=== PATIENT | male | born 1945 | race Caucasian/White ===

== ENCOUNTER 2017-01-09 01:24 | Emergency (ER) | payer OTHER, BC ==
[2017-01-09 01:59] VITALS: BP 109/59; PULSE 97; TEMP 98.1; BMI 25.1
--- NOTE | 2017-01-09 02:36 | PDOC ---
History of Present Illness - General History Source: Patient Exam Limitations: No Limitations - History of Present Illness Initial Comments: 01/09/17 03:16 The patient is a 71 year old male with significant past medical history of hyperlipidemia who presents to the ED for s/p fall prior to arrival. Patient reports he was leaving a green party yesterday evening when he trip and fell on the sidewalk and was unable to get up. He reports falling on both of his knee and now has complaints of bilateral knee pain. No head trauma or LOC. States he contacted 911 for help. States he wanted to go home to his apartment, but was brought here instead. Patient admits to having 5 drinks of vodka with soda. He states he lost his two months ago and admits that he has been stressed out and thus this contributes to his drinking. The patient denies fever, chills, cough, SOB, chest pain, and palpitations. The patient denies abdominal pain, nausea, vomiting, and diarrhea. <Margaret Kasper - Last Filed: 01/09/17 03:25> - General History Source: Patient <Glen Friedman - Last Filed: 01/09/17 04:52> - General Chief Complaint: Alcohol intoxication Stated Complaint: INTOX Time Seen by Provider: 01/09/17 02:35 Past History <Margaret Kasper - Last Filed: 01/09/17 03:25> - Psycho/Social/Smoking Cessation Hx Suicidal Ideation: No Smoking History: Former smoker Have you smoked in the past 12 months: Yes Information on smoking cessation initiated: No Hx Alcohol Use: No Drug/Substance Use Hx: No <Glen Friedman - Last Filed: 01/09/17 04:52> - Past Medical History Allergies/Adverse Reactions: Allergies Allergy/AdvReac Type Severity Reaction Status Date / Time No Known Allergies Allergy Verified 01/09/17 01:57 Home Medications: Ambulatory Orders NK [No Known Home Medication] 01/09/17 Review of Systems - Review of Systems Able to Perform ROS?: Yes Comments:: 01/09/17 03:16 CONSTITUTIONAL: Absent: fever, no chills, no fatigue EYES: Absent: visual changes ENT: Absent: ear pain, no sore throat CARDIOVASCULAR: Absent: chest pain, no palpitations RESPIRATORY: Absent: cough, no SOB GI: Absent: abdominal pain, no nausea, no vomiting, no constipation, no diarrhea GENITOURINARY: Absent: dysuria, no frequency, no hematuria MUSCULOSKELETAL: +bilateral knee pain Absent: back pain, no myalgia SKIN: Absent: rash NEURO: Absent: headache <Margaret Kasper - Last Filed: 01/09/17 03:25> *Physical Exam - Vital Signs Last Vital Signs Temp Pulse Resp BP Pulse Ox 98.1 F 97 H 14 109/59 88 L 01/09/17 01:57 01/09/17 01:57 01/09/17 01:57 01/09/17 01:57 01/09/17 01:57 - Physical Exam Comments: 01/09/17 03:18 GENERAL: Well-appearing, well-nourished. No apparent distress. +AOB HEENT: Normocephalic, atraumatic. No racoon or kaufman signs. PERRL, EOM intact. No hemotympanum. CARDIOVASCULAR: Normal S1, S2. Regular rate and rhythm. PULMONARY: Clear to auscultation bilaterally. ABDOMEN: Protuberant, soft, non-distended, non-tender. EXTREMITIES: Normal ROM in all four extremities. No gross deformities. SKIN: Warm, dry. No rash. 2 small abrasions on bilateral knees. Small abrasion on under mandible NEUROLOGICAL: No focal neurological deficits. <Margaret Kasper - Last Filed: 01/09/17 03:25> - Vital Signs Last Vital Signs Temp Pulse Resp BP Pulse Ox 98.1 F 97 H 14 109/59 88 L 01/09/17 01:57 01/09/17 01:57 01/09/17 01:57 01/09/17 01:57 01/09/17 01:57 <Glen Friedman - Last Filed: 01/09/17 04:52> Medical Decision Making - Medical Decision Making 01/09/17 04:51 Dr. Friedman: The scribe's documentation has been prepared under my direction and personally reviewed by me in its entirery. I confirm that the note above accurately reflects all work, treatment, procedures, and medical decision making performed by me. Pt alert awake and oriented, Pt has been observed for several hours. no gross bony deformities of knees. Pt will be discharge <Glen Friedman - Last Filed: 01/09/17 04:52> *DC/Admit/Observation/Transfer - Attestations Scribe Attestion: 01/09/17 03:18 Documentation prepared by Margaret Kasper, acting as medical technologist hematology for Glen Friedman MD/DO. <Margaret Kasper - Last Filed: 01/09/17 03:25> - Discharge Dispostion Admit: No <Glen Friedman - Last Filed: 01/09/17 04:52> Diagnosis at time of Disposition: Contusion Qualifiers: Encounter type: initial encounter Contusion area: knee Laterality: unspecified laterality Qualified Code(s): S80.00XA - Contusion of unspecified knee, initial encounter - Discharge Dispostion Disposition: HOME Condition at time of disposition: Stable - Patient Instructions Printed Discharge Instructions: DI for Contusion
== END 2017-01-09 05:01 | disposition home or self-care (01) ==
LOC: JER 01:24
DX: S80.02XA Contusion of left knee, initial encounter (principal); S80.01XA Contusion of right knee, initial encounter; W18.39XA Other fall on same level, initial encounter; Y93.89 Activity, other specified; Y92.480 Sidewalk as the place of occurrence of the external cause; E78.5 Hyperlipidemia, unspecified
CPT/HCPCS: 99281-25

== ENCOUNTER 2019-04-22 15:33 | Emergency (ER) | payer OTHER, BC ==
--- NOTE | 2019-04-22 15:44 | PDOC ---
Rapid Medical Evaluation Chief Complaint: Lightheaded Time Seen by Provider: 04/22/19 15:39 Medical Evaluation: Allergies Allergy/AdvReac Type Severity Reaction Status Date / Time No Known Allergies Allergy Verified 01/09/17 01:57 04/22/19 15:39 74 year old male felt faint, dizziness and disorientation at 1.30 pm, now less disoriented as per nephew. BIB nephew for evaluation PE: patient alert ox3. patient with garbled speech no weakness A: AMS P: Stroke/ TIA symptoms? stroke code called labs ordered, history of hypercholestrolemia Discharge Disposition - Diagnosis Altered mental status Qualifiers: Altered mental status type: transient alteration of awareness Qualified Code(s) : R40.4 - Transient alteration of awareness - Referrals - Patient Instructions - Post Discharge Activity
[2019-04-22] MEDS ORDERED: SODIUM CHLORIDE 1,000 ML IV SCH (15:45)
[2019-04-22 15:49] VITALS: TEMP 98.2; BMI 23.3
[2019-04-22 16:37] LABS: BASO % 1.6 % (0-2.0); EOS % 2.1 % (0-4.5); HEMATOCRIT 43.4 % (35.4-49); HEMOGLOBIN 14.4 GM/dL (11.7-16.9); LYMPH % 20.6 % (8-40); MCH 32.7 pg (25.7-33.7); MCHC 33.2 g/dl (32.0-35.9); MEAN CELL VOLUME 98.5 fl (80-96); MEAN PLT VOLUME 9.4 fl (7.5-11.1); MONO % 11.9 % (3.8-10.2); NEUT % 63.8 % (42.8-82.8); PLATELET COUNT 143 K/MM3 (134-434); RBC 4.41 M/mm3 (4.00-5.60); RDW 12.8 % (11.9-15.9); WHITE BLOOD COUNT 8.6 K/mm3 (4.0-10.0)
--- NOTE | 2019-04-22 16:39 | PDOC ---
History of Present Illness - History of Present Illness Initial Comments: 04/22/19 16:34 74m with pmh of right temporoparietal subdural bleed in May 2018 (no surgery ) presents to the Ed after episode at 1330 of non-sensical speech, now resolved. Nephew reports that as he was talking to his uncle over the phone he realized that the sentence his uncle were saying had existing world and the sentences were well-constructed but that they didn't make sense. No recent trauma. Denies chest pain, sob, weakness. Feels at baseline. <Isidoro Lion - Last Filed: 04/22/19 18:17> <Nellie Brandon - Last Filed: 04/23/19 17:50> - General Chief Complaint: CVA/TIA Stated Complaint: Weakness Time Seen by Provider: 04/22/19 15:39 Past History - Past Medical History COPD: No Hypercholesterolemia: Yes - Immunization History Immunization Up to Date: Yes - Suicide/Smoking/Psychosocial Hx Smoking History: Never smoked Have you smoked in the past 12 months: No Information on smoking cessation initiated: No Hx Alcohol Use: No Drug/Substance Use Hx: No <Isidoro Lion - Last Filed: 04/22/19 18:17> <Nellie Brandon - Last Filed: 04/23/19 17:50> - Past Medical History Allergies/Adverse Reactions: Allergies Allergy/AdvReac Type Severity Reaction Status Date / Time No Known Allergies Allergy Verified 04/22/19 15:49 Home Medications: Ambulatory Orders NK [No Known Home Medication] 01/09/17 Review of Systems - Review of Systems Able to Perform ROS?: Yes Is the patient limited Upper Sorbian proficient: No Constitutional: No: Symptoms Reported HEENTM: No: Symptoms Reported Respiratory: No: Symptoms reported Cardiac (ROS): No: Symptoms Reported ABD/GI: No: Symptoms Reported : No: Symptoms Reported Musculoskeletal: No: Symptoms Reported Integumentary: No: Symptoms Reported Neurological: No: Symptoms reported All Other Systems: Reviewed and Negative <Isidoro iLon - Last Filed: 04/22/19 18:17> *Physical Exam - Vital Signs Last Vital Signs Temp Pulse Resp BP Pulse Ox 98.2 F 79 16 166/102 H 95 04/22/19 15:41 04/22/19 15:41 04/22/19 15:41 04/22/19 15:41 04/22/19 15:41 - Physical Exam General Appearance: Yes: Nourished, Appropriately Dressed. No: Apparent Distress HEENT: positive: EOMI, NIESHA, Normal ENT Inspection Respiratory/Chest: positive: Lungs Clear, Normal Breath Sounds. negative: Chest Tender, Respiratory Distress Cardiovascular: positive: Regular Rhythm, Regular Rate, S1, S2 Gastrointestinal/Abdominal: positive: Normal Bowel Sounds, Flat, Soft. negative : Tender Musculoskeletal: positive: Normal Inspection. negative: CVA Tenderness Extremity: positive: Normal Capillary Refill, Normal Inspection, Normal Range of Motion Neurologic: positive: clinical quality assurance associate II-XII NML intact, Fully Oriented, Alert, Normal Mood/ Affect, Normal Response, Motor Strength 5/5 <Isidoro Lion - Last Filed: 04/22/19 18:17> - Vital Signs Last Vital Signs Temp Pulse Resp BP Pulse Ox 98.2 F 76 20 168/99 95 04/22/19 18:39 04/22/19 18:39 04/22/19 18:39 04/22/19 18:39 04/22/19 15:41 <Nellie Brandon - Last Filed: 04/23/19 17:50> NIH Stroke Scale - Last Known Well Date/Time & Onset Date Last Known Well: 04/22/19 Time Last Known Well: 13:30 - Initial Evaluation Level of consciousness: Alert Ask patient the month and their age: Answers both correctly Ask patient to open & close eyes; make fist and let go: Obeys both correctly Best gaze (horizontal eye movement): Normal Visual field testing: No visual field loss Facial paresis (Show teeth/raise eyebrows/close eyes tight): Minor paralysis ( flattened nasolabial fold, asymmetry on smiling) Motor Function: Left Arm: Normal Motor Function: Right Arm: Normal (extends arm 90 (or 45) degrees for 10 seconds without drift Motor Function: Left Leg: Normal (extends leg 30 degrees for 5 seconds without drift) Motor Function: Right Leg: Normal (extends leg 30 degrees for 5 seconds without drift) Limb Ataxia: No ataxia Sensory(Use pinprick test arms,legs,trunk,face/side to side): Normal Best language (Describe picture, name items, read sentences): No Aphasia Dysarthria (read several words): Normal articulation Extinction and Inattention: No abnormality - Total Score NIH Stroke Scale Score: 1 <Isidoro Lion - Last Filed: 04/22/19 18:17> Critical Care Time/MDM Note - Medical Decision Making Note: 04/22/19 16:36 74 with pmh of right sided subdural bleed in May 2018 presents with Wernicke -type aphasia, now resolved. CT read: Right temporal and right frontal juxtacortical mildly hyperdense lesions are seen probably on the basis of neoplastic disease. These lesions may also be partially hemorrhagic. Each lesion demonstrates mild associated edema. Correlation with contrast enhanced MRI or CT is suggested. 04/22/19 16:39 Placing call to Neurologist manager front office. Spoke to Dr. Rutherford covering for Dr. Dwyer, patient as lung mass that was never biopsied 04/22/19 18:00 Dr. Brandon spoke to Dr. Rachel who recommended the patient be transferred back to [facility] as we don't have a previous image to compare <Isidoro Lion - Last Filed: 04/22/19 18:17> *DC/Admit/Observation/Transfer - Transfer to Acute Care Facility Receiving Facility: [facility]. Accepting Physician:: Julianna <Isidoro Lion - Last Filed: 04/22/19 18:17> <Nellie Brandon - Last Filed: 04/23/19 17:50> Diagnosis at time of Disposition: Abnormal CT of brain Altered mental status Qualifiers: Altered mental status type: transient alteration of awareness Qualified Code(s) : R40.4 - Transient alteration of awareness - Discharge Dispostion Disposition: TRANSFER ACUTE CARE/OTHER HOSP Condition at time of disposition: Guarded
[2019-04-22 16:57] LABS: INR 0.96 (0.83-1.09); PROTHROMBIN TIME (PATIENT) 11.3 SEC (9.7-13.0)
--- NOTE | 2019-04-22 17:12 | PDOC ---
Documentation entered by Mason Sun SCRIBE, acting as scribe for Nellie Brandon MD. Nellie Brandon MD: This documentation has been prepared by the Corinne coronado Xhesika, SCRIBE, under my direction and personally reviewed by me in its entirety. I confirm that the documentation accurately reflects all work, treatment, procedures, and medical decision making performed by me. Attending Attestation - Resident Resident Name: LionIsidoro - ED Attending Attestation I have performed the following: I have examined & evaluated the patient, The case was reviewed & discussed with the resident, I agree w/resident's findings & plan, Exceptions are as noted - HPI HPI: 04/22/19 16:30 74 year old male with a significant PMH of R temporal subdural bleed and hyperlipidemia who presents to the emergency department for aphasia since 1: 30pm. As per nephew, he was on the phone with the patient and the patient was garbling his speech and was disoriented. Patient denies any complaints currently. The patient denies chest pain, shortness of breath, headache and dizziness. Denies fever, chills, cough, nausea, vomiting, diarrhea and constipation. Denies dysuria, frequency, urgency and hematuria. Allergies: NKDA PCP: Immanuel Brown 04/22/19 17:05 - Physicial Exam PE: 04/22/19 17:20 awake alert lungs clear face with left sided asymmetry weakness on smiling. strength symmetric. speech mild slurring of some words ( baseline per nephew). - Medical Decision Making 04/22/19 17:05 74 yo male ho recently treated lung mass / CA htn hld here with episode of transient aphasia/ confusion lasted from 1:30 pm until EMS arrived 20 minutes later. no h/o prior CVA, does have h/o prior subdural after a fall , followed with a nuerologist DR Leiva in [place] [facility] after his discharge. pt denies f/c no cp no sob. no known h/o prior CVA or brain mass. no other mod factors. per nephew at pt bedside hes back to his baseline. on exam pt with noted left facial droop, speech mild dysarthria, strength symmetric. plan ct head labs ekg . 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 awaiting call back. 04/22/19 17:31 dw remigio Ureña [employer] and silver[employer] salesperson. recommend transfer to [facility] for continuity, further workup. [facility] paged. 04/22/19 17:36 [facility] to be transported to [facility], accepted by DR Kulkarni. NIH Stroke Scale - Initial Evaluation Level of consciousness: Alert Ask patient the month and their age: Answers both correctly Ask patient to open & close eyes; make fist and let go: Obeys both correctly Best gaze (horizontal eye movement): Normal Visual field testing: Partial hemianopia Facial paresis (Show teeth/raise eyebrows/close eyes tight): Minor paralysis ( flattened nasolabial fold, asymmetry on smiling) Motor Function: Left Arm: Normal Motor Function: Right Arm: Normal (extends arm 90 (or 45) degrees for 10 seconds without drift Motor Function: Left Leg: Normal (extends leg 30 degrees for 5 seconds without drift) Motor Function: Right Leg: Normal (extends leg 30 degrees for 5 seconds without drift) Limb Ataxia: No ataxia Sensory(Use pinprick test arms,legs,trunk,face/side to side): Normal Best language (Describe picture, name items, read sentences): No Aphasia Dysarthria (read several words): Mild to moderate slurring of words Extinction and Inattention: No abnormality - Total Score NIH Stroke Scale Score: 3
[2019-04-22 17:24] LABS: ALBUMIN 3.7 g/dl (3.4-5.0); ALK PHOS 76 U/L (45-117); ANION GAP 7 MMOL/L (8-16); BILIRUBIN,TOTAL 0.8 mg/dL (0.2-1); BLOOD UREA NITROGEN 12.3 mg/dL (7-18); CALCIUM 8.8 mg/dL (8.5-10.1); CHLORIDE 103 mmol/L (98-107); CHOLESTEROL 176 mg/dL (50-200); CO2 28 mmol/L (21-32); CREATININE 0.8 mg/dL (0.55-1.3); GLUCOSE,RANDOM 82 mg/dL (74-106); HDL CHOLESTEROL 59 mg/dL (40-60); POTASSIUM 4.8 mmol/L (3.5-5.1); SGOT/AST 28 U/L (15-37); SGPT/ALT 20 U/L (13-61); SODIUM 138 mmol/L (136-145); TOT PROT 7.7 g/dl (6.4-8.2)
[2019-04-22] MEDS ORDERED: DEXAMETHASONE SOD PHOSPHATE 10 MG/1 ML VIAL IVPUSH ONE (17:38)
[2019-04-22] MEDS ORDERED: DEXAMETHASONE SOD PHOSPHATE 10 MG/1 ML VIAL ONE (17:54)
[2019-04-22 18:42] VITALS: BP 168/99; PULSE 76
--- NOTE | 2019-04-23 11:46 | EKG ---
Test Reason : Blood Pressure : / mmHG Vent. Rate : 077 BPM Atrial Rate : 077 BPM P-R Int : 168 ms QRS Dur : 082 ms QT Int : 386 ms P-R-T Axes : 062 075 072 degrees QTc Int : 436 ms NORMAL SINUS RHYTHM Confirmed by KATHY GONZALEZ MD ([id number]) on 04/23/2019 11:46:38 AM Referred By: Confirmed By:KATHY GONZALEZ MD
== END 2019-04-22 18:42 | disposition short-term general hospital (02) ==
LOC: JER 15:33
PROC: 3E0333Z Introduction of Anti-inflammatory into Peripheral Vein, Percutaneous Approach (ICD-10-PCS; principal; 2019-04-22)
PROC: 3E0337Z Introduction of Electrolytic and Water Balance Substance into Peripheral Vein, Percutaneous Approach (ICD-10-PCS; 2019-04-22)
DX: R40.4 Transient alteration of awareness (principal); R90.89 Other abnormal findings on diagnostic imaging of central nervous system; I69.820 Aphasia following other cerebrovascular disease; E78.00 Pure hypercholesterolemia, unspecified
CPT/HCPCS: 36415; 70450-TC; 80053; 82465; 82550; 82553; 83718; 83721; 84478; 84484; 85025; 85610; 93005; 93010; 99285-25; J1100; J7030

== ENCOUNTER 2019-08-17 13:47 | Inpatient (IN) | payer OTHER, BC ==
[2019-08-17 13:56] VITALS: BMI 22.2
[2019-08-17] MEDS ORDERED: ALBUTEROL SO4 2.5/IPRATROPIUM 0.5 INH SOL 3 ML VIAL.NEB. NEB ONE ×4 (13:57→14:57)
--- NOTE | 2019-08-17 13:57 | PDOC ---
Rapid Medical Evaluation Medical Evaluation: Allergies Allergy/AdvReac Type Severity Reaction Status Date / Time No Known Allergies Allergy Verified 04/22/19 15:49 I have performed a brief in-person evaluation of this patient. The patient presents with a chief complaint of: PMH of R temporal subdural bleed , ?COPD and hyperlipidemia presents with chest pain and productive cough for the past few days; denies fever Pertinent physical exam findings: In NAD, difficult to auscultate lungs due to poor inspiratory effort I have ordered the following: Labs, EKG, CXR, duoneb The patient will proceed to the ED for further evaluation. 08/17/19 13:52
[2019-08-17] MEDS ORDERED: methylPREDNISolone NA SUCC 125 MG/2 ML VIAL IVPB ONE (14:56)
[2019-08-17] MEDS ORDERED: methylPREDNISolone NA SUCC 125 MG/2 ML VIAL ONE (14:59)
[2019-08-17 15:06] LABS: BASO % 0.5 % (0-2.0); HEMATOCRIT 42.9 % (35.4-49); HEMOGLOBIN 14.3 GM/dL (11.7-16.9); LYMPH % 8.2 % (8-40); MCH 32.1 pg (25.7-33.7); MCHC 33.3 g/dl (32.0-35.9); MEAN CELL VOLUME 96.4 fl (80-96); MEAN PLT VOLUME 8.4 fl (7.5-11.1); NEUT % 85.3 % (42.8-82.8); PLATELET COUNT 115 K/MM3 (134-434); RBC 4.45 M/mm3 (4.00-5.60); RDW 14.5 % (11.9-15.9); WHITE BLOOD COUNT 10.1 K/mm3 (4.0-10.0)
--- NOTE | 2019-08-17 15:09 | PDOC ---
History of Present Illness - General Chief Complaint: Shortness of Breath Stated Complaint: CHEST PAIN Time Seen by Provider: 08/17/19 14:32 - History of Present Illness Initial Comments: 08/18/19 10:12 74M PMH COPD, subdural BIBEMS from home c/o SOB and productive cough (yellow sputum) x3 days. Denies f/c, n/v, cp. Denies GI and urinary sx. Recently prescribed ventolin inhaler which helps w/ SOB when used. Not on home O2. Poor historian. PCP Dr. Yuliya VARELA Former smoker Past History - Past Medical History Allergies/Adverse Reactions: Allergies Allergy/AdvReac Type Severity Reaction Status Date / Time No Known Allergies Allergy Verified 08/17/19 13:56 Home Medications: Ambulatory Orders Atorvastatin Ca [Lipitor] 20 mg PO HS 08/17/19 Carvedilol [Coreg -] 3.125 mg PO BID 08/17/19 Omeprazole 40 mg PO 08/17/19 levETIRAcetam [Keppra -] 500 mg PO BID 08/17/19 COPD: Yes (unknown due to pt's condition) Hypercholesterolemia: Yes - Immunization History Immunization Up to Date: Yes - Psycho Social/Smoking Cessation Hx Smoking History: Former smoker Have you smoked in the past 12 months: No Information on smoking cessation initiated: No Hx Alcohol Use: (unknown) Drug/Substance Use Hx: (unknown `) Review of Systems - Review of Systems Comments:: 08/18/19 10:12 CONSTITUTIONAL: Denies F / C HEENT: Denies headache, lightheadedness, dizziness, changes in vision / hearing , diplopia, blurry vision, sore throat, rhinorrhea RESP: Endorses SOB, productive cough CARD: Denies chest pain, palpitations GI: Denies N / V / D, abdominal pain, bloody stool, inability to tolerate PO : Denies dysuria, hematuria, frequency SKIN: Denies rashes NEURO: Denies numbness, tingling, weakness MSK: Denies back pain *Physical Exam - Vital Signs Last Vital Signs Temp Pulse Resp BP Pulse Ox 97.4 F L 100 H 18 111/78 95 08/17/19 13:51 08/17/19 13:51 08/17/19 13:51 08/17/19 13:51 08/17/19 13:51 - Physical Exam 08/18/19 10:13 GEN: NAD, nontoxic. AAOx3 HEENT: NC/AT, EOMI, PERRLA. No facial asymmetry. Moist mucous membranes. Normal voice. Supple neck w/ FROM. CV: S1/S2, quiet LUNG: Audible breathing, restricted air movement, occasional expiratory wheezes GI: soft, ndnt, +BS, no guarding, no rebound. No masses. EXTREMITIES: 2+ distal pulses. No LE edema. No obvious deformities of all extremities. SKIN: warm, dry, normal turgor. Plethoric neck and upper chest. PSYCH: odd affect, minimally cooperative, not hostile NEURO: Moving all extremities well ED Treatment Course - LABORATORY CBC & Chemistry Diagram: 08/18/19 07:40 08/18/19 07:40 Medical Decision Making - Medical Decision Making 08/17/19 15:09 74M c/o SOB and productive cough (thick yellow sputum) x3 days w/o f/c. DDx - likely COPD exacerbation; PNA, bronchitis - CBC, CMP, Cardiac - CXR - EKG - Nebs, steroids 08/17/19 15:24 Daniel Hodges - pt's cousin called in stating he is pt's only living relative Spoke to pt regarding Daniel Hodges - pt states he does not get along with Daniel Hodges and that Yusef Olson, is in fact, his proxy. - Admit // ADMITTED Discharge - Discharge Information Problems reviewed: Yes Clinical Impression/Diagnosis: COPD exacerbation - Follow up/Referral - Patient Discharge Instructions - Post Discharge Activity
[2019-08-17 15:11] LABS: VENOUS PC02 40.6 mmHg (38-52); VENOUS PH 7.44 (7.31-7.41); VENOUS PO2 57.9 mmHg (28-48)
[2019-08-17 15:40] LABS: ANISOCYTOSIS 0; MACROCYTOSIS 0; PLATELET ESTIMATE DECREASED
[2019-08-17 15:42] LABS: ALBUMIN 2.7 g/dl (3.4-5.0); BILIRUBIN,TOTAL 0.8 mg/dL (0.2-1); CALCIUM 8.9 mg/dL (8.5-10.1); CREATININE 0.8 mg/dL (0.55-1.3); N-TERMINAL BNP 1028.2 pg/ml (5-450); TOT PROT 5.9 g/dl (6.4-8.2)
--- NOTE | 2019-08-17 15:49 | PDOC ---
Attending Attestation - Resident Resident Name: Frederick Quintero - ED Attending Attestation I have performed the following: I have examined & evaluated the patient, The case was reviewed & discussed with the resident, I agree w/resident's findings & plan - HPI HPI: 08/17/19 15:46 74-year-old male with history of COPD presents brought in by EMS with 2 weeks of progressive respiratory symptoms of cough, chills, chest congestion. No nasal symptoms, no GI complaints, no persistent chest pain. Taking inhaler without relief, presents for evaluation. - Physicial Exam PE: 08/17/19 15:47 Afebrile, slight tachycardia, O2 sat 91% on room air tachypneic, speaking 4-5 word sentences no jvd, oropharynx clear s1s2 reg slight tachy coarse breath sounds b/l, + exp wheeze abd benign no edema - Critical Care Time Total Critical Care Time: 30 Critical Care Statement: The care of this patient involved high complexity decision making to prevent further life threatening deterioration of the patient 's condition and/or to evaluate & treat vital organ system(s) failure or risk of failure. - Medical Decision Making 08/17/19 15:49 74-year-old male with 2 weeks of progressive difficulty breathing, presents here with COPD exacerbation and acute hypoxic respiratory distress, treated immediately upon arrival with nebulizers, IV steroids. EKG showed sinus tachycardia without acute ischemia, presentation not consistent with volume overload or CHF Labs, chest x-ray Will require admission for hypoxic COPD exacerbation 08/17/19 15:51 wbc 10 with 13 bands. chem wnl including trop. pCO2 normal on vbg. Heart Score/ECG Review #1 ECG reviewed & interpreted by me at: 14:12 General ECG Interpretation: Sinus Rhythm, Normal Rate (95), Normal Intervals ( qtc 457), No acute ischemic changes
[2019-08-17] MEDS ORDERED: AZITHROMYCIN IVPB 500 MG in DEXTROSE 5%-WATER - 250 ML IVPB ONE (16:18)
[2019-08-17] MEDS ORDERED: CEFTRIAXONE 1 GM in DEXTROSE 5%-WATER - 100 ML IVPB ONE (16:30)
--- NOTE | 2019-08-17 16:54 | PN ---
Teaching Attending Note Name of Resident: Mateus Kitchen ATTENDING PHYSICIAN STATEMENT I saw and evaluated the patient. I reviewed the resident's note and discussed the case with the resident. I agree with the resident's findings and plan as documented. SUBJECTIVE: Patient is a 74yom with PMHx of Right temporal SDH, dyslipidemia, lung ca( s/p RT [id number]) presents to ED with complaint of SOB with productive cough of white sputum with worsening symptoms. Patient has been on dexamethasone for a long time. Feels better at this time OBJECTIVE: Vital Signs Temperature 97.4 F L 08/17/19 13:51 Pulse Rate 93 H 08/17/19 13:55 Respiratory Rate 18 08/17/19 13:51 Blood Pressure 111/78 08/17/19 13:51 O2 Sat by Pulse Oximetry (%) 91 L 08/17/19 13:55 GENERAL: The patient is awake, alert, pursed lips with red neck . HEAD: Normal with no signs of trauma. EYES: PERRL, extraocular movements intact, sclera anicteric, conjunctiva clear. ENT: Ears normal, oropharynx clear without exudates, moist mucous membranes. NECK: Trachea midline, full range of motion, supple. LUNGS: Breath sounds equal, clear to auscultation bilaterally, no wheezes, no crackles, no accessory muscle use. HEART: Regular rate and rhythm, S1, S2 positive, TAN 2/6 no rub or gallop. ABDOMEN: Soft, nontender, nondistended, normoactive bowel sounds, no guarding, no rebound, no hepatosplenomegaly, no masses. EXTREMITIES: 2+ pulses, warm, well-perfused, no edema. NEUROLOGICAL: Cranial nerves II through XII grossly intact. Normal speech, gait not observed. PSYCH: Normal mood, normal affect. SKIN: Warm, dry, normal turgor, no rashes or lesions noted CBCD WBC 10.1 K/mm3 (4.0-10.0) H 08/17/19 14:52 RBC 4.45 M/mm3 (4.00-5.60) 08/17/19 14:52 Hgb 14.3 GM/dL (11.7-16.9) 08/17/19 14:52 Hct 42.9 % (35.4-49) 08/17/19 14:52 MCV 96.4 fl (80-96) H 08/17/19 14:52 MCHC 33.3 g/dl (32.0-35.9) 08/17/19 14:52 RDW 14.5 % (11.9-15.9) D 08/17/19 14:52 Plt Count 115 K/MM3 (134-434) L 08/17/19 14:52 MPV 8.4 fl (7.5-11.1) D 08/17/19 14:52 CMP Sodium 142 mmol/L (136-145) 08/17/19 14:52 Potassium 5.0 mmol/L (3.5-5.1) 08/17/19 14:52 Chloride 106 mmol/L (98-107) 08/17/19 14:52 Carbon Dioxide 28 mmol/L (21-32) 08/17/19 14:52 Anion Gap 8 MMOL/L (8-16) 08/17/19 14:52 BUN 30.0 mg/dL (7-18) H 08/17/19 14:52 Creatinine 0.8 mg/dL (0.55-1.3) 08/17/19 14:52 Random Glucose 116 mg/dL (74-106) H 08/17/19 14:52 Calcium 8.9 mg/dL (8.5-10.1) 08/17/19 14:52 Total Bilirubin 0.8 mg/dL (0.2-1) 08/17/19 14:52 AST 32 U/L (15-37) 08/17/19 14:52 ALT 45 U/L (13-61) 08/17/19 14:52 Alkaline Phosphatase 101 U/L (45-117) 08/17/19 14:52 Total Protein 5.9 g/dl (6.4-8.2) L 08/17/19 14:52 Albumin 2.7 g/dl (3.4-5.0) L 08/17/19 14:52 CARDIAC ENZYMES Troponin I 0.03 ng/ml (0.00-0.05) 08/17/19 14:52 Current Medications Generic Name Dose Route Start Last Admin Trade Name Freq PRN Reason Stop Dose Admin Azithromycin 500 mg/ Dextrose 250 mls @ 250 mls/hr 08/17/19 16:18 IVPB 08/17/19 17:17 ONCE ONE Ceftriaxone Sodium 1 gm/ 100 mls @ 200 mls/hr 08/17/19 16:30 Dextrose IVPB 08/17/19 16:59 ONCE ONE Home Medications Medication Instructions Recorded NK [No Known Home Medication] 01/09/17 Unobtainable 06/11/18 BNP: 1028 ASSESSMENT AND PLAN: Patient is a 74yom with Pmhx of COPD presented difficulty breathing with progression x 2 weeks presented with acute COPD exacerbation and acute hypoxic respiratory distress. # Acute Copd exacerbation continue solu medrol since unable to get the correct dosing of dexamethasone #acute hypoxic respiratory distress. neb treatments continue rocephin/zithmax, check the qtc in am pulm consult check for TSH hx of Rtx DVT px: lovenox 40mg
[2019-08-17] MEDS ORDERED: CEFTRIAXONE 1 GM/50 ML BAG ONE (17:03)
[2019-08-17] MEDS ORDERED: AZITHROMYCIN IVPB 500 MG/250 ML BAG IVPB ONE (17:03)
--- NOTE | 2019-08-17 17:51 | HP ---
CHIEF COMPLAINT: SOB and cough PCP: Axel Dwyer HISTORY OF PRESENT ILLNESS: 74M w/ pmh of Right temporal SDH, dyslipidemia, lung ca(s/p RT [id number]) presents to [facility] with complaint of SOB with productive cough of white sputum. Has had cough for multiple weeks, worsening in the past 3d. Denies rhinorrhea, recent sick contacts, fever, chills, lethargy. States that his last hospitalization for breathing issues was ~2018, never intubated. Unsure if he was recently taking prednisone or dexamethasone. No use of home oxygen. Lives alone, ambulates with cane. Also, endorses transient weakness in Left Leg lasting 45mins starting at 12:30. Had trouble getting up. Denies h/o CVA. ER course was notable for: (1) duoneb x3, solumedrol 125mg (2) hypoxia to 87%(undocumented), pulse ox 91% (3) Ceftriaxone + Azithromycin x1 (4) troponin 0.03, BNP 1028 (5) CXR w/o read but appears normal on my exam (6) EKG: sinus w/ premature atrial complexes, QTc 457 Recent Travel: denies PAST MEDICAL HISTORY: Right temporal SDH, dyslipidemia, lung ca(s/p RT [id number]) PAST SURGICAL HISTORY: denies Social History: Smokin.5ppd x 54ys; quit 2ys prior Alcohol: ~4x/wk Drugs: denies Allergies No Known Allergies Allergy (Verified 08/17/19 13:56) HOME MEDICATIONS: Home Medications Medication Instructions Recorded NK [No Known Home Medication] 01/09/17 Unobtainable 06/11/18 REVIEW OF SYSTEMS CONSTITUTIONAL: persistent weakness in gait Absent: fever, chills, diaphoresis, generalized weakness, malaise, loss of appetite, weight change HEENT: Absent: rhinorrhea, nasal congestion, throat pain, throat swelling, difficulty swallowing, mouth swelling, ear pain, eye pain, visual changes CARDIOVASCULAR: Absent: chest pain, syncope, palpitations, irregular heart rate, lightheadedness , peripheral edema RESPIRATORY: cough, productive cough w/ white sputum Absent: dyspnea with exertion, orthopnea, wheezing, stridor, hemoptysis GASTROINTESTINAL: Absent: abdominal pain, abdominal distension, nausea, vomiting, diarrhea, constipation, melena, hematochezia GENITOURINARY: Absent: dysuria, frequency, urgency, hesitancy, hematuria, flank pain, genital pain MUSCULOSKELETAL: Absent: myalgia, arthralgia, joint swelling, back pain, neck pain SKIN: multiple nevi Absent: rash, itching, pallor NEUROLOGIC: weakness in LLE, weakness in gait Absent: headache, focal weakness or paresthesias, dizziness, unsteady gait, seizure, mental status changes, bladder or bowel incontinence PHYSICAL EXAMINATION Vital Signs - 24 hr 08/17/19 08/17/19 08/17/19 13:51 13:55 17:45 Temperature 97.4 F L Pulse Rate 100 H 93 H Pulse Rate [ 93 H Left] Respiratory 18 22 H Rate Blood Pressure 111/78 Blood Pressure 125/72 [Left Arm] O2 Sat by Pulse 95 91 L 95 Oximetry (%) GENERAL: Awake, alert, and fully oriented. NAD HEAD: Normal with no signs of trauma. EYES: Extraocular movements intact, sclera anicteric, conjunctiva clear. No lid lag. Mild periorbital edema EARS, NOSE, THROAT: Ears normal, nares patent, oropharynx clear without exudates. Moist mucous membranes. NECK: Normal range of motion, supple without lymphadenopathy, JVD, or masses. LUNGS: mild crackles to bases, bilaterally. No wheezes. No accessory muscle use. On RA. Expiratory breaths through pursed lips HEART: Regular rate and rhythm, normal S1 and S2 without murmur, rub or gallop. ABDOMEN: Soft, nontender, not distended, no guarding, no rebound, no masses. Protuberant abdomen. MUSCULOSKELETAL: Normal range of motion at all joints. No bony deformities or tenderness. Thin BUE and BLE UPPER EXTREMITIES: 2+ pulses, warm, well-perfused. No cyanosis. No clubbing. No peripheral edema. LOWER EXTREMITIES: 2+ pulses, warm, well-perfused. No calf tenderness. No peripheral edema. NEUROLOGICAL: Cranial nerves II-XII intact. Normal speech. Gait not observed. Inconsistent history. PSYCHIATRIC: Cooperative. Abnormal affect. SKIN: Warm, dry, normal turgor. Multiple Nevi of the back. Vikram appearing skin Laboratory Results - last 24 hr 08/17/19 08/17/19 08/17/19 14:52 14:52 14:52 WBC 10.1 H RBC 4.45 Hgb 14.3 Hct 42.9 MCV 96.4 H MCH 32.1 MCHC 33.3 RDW 14.5 D Plt Count 115 L MPV 8.4 D Absolute Neuts (auto) 8.6 H Neutrophils % 85.3 H D Neutrophils % (Manual) 68.0 Band Neutrophils % 13.4 Lymphocytes % 8.2 D Lymphocytes % (Manual) 5.2 L Monocytes % 6.0 Monocytes % (Manual) 8 Eosinophils % 0.0 D Eosinophils % (Manual) 0.0 Basophils % 0.5 Basophils % (Manual) 0.0 Myelocytes % (Man) 0 Promyelocytes % (Man) 0 Blast Cells % (Manual) 0 Nucleated RBC % 1 H Metamyelocytes 1 Hypochromia 0 Platelet Estimate Decreased Platelet Comment Present Polychromasia 0 Poikilocytosis 0 Anisocytosis 0 Microcytosis 0 Macrocytosis 0 VBG pH POC VBG pCO2 POC VBG pO2 VBG HCO3 VBG O2 Sat (Meg) VBG Base Excess Sodium 142 Potassium 5.0 Chloride 106 Carbon Dioxide 28 Anion Gap 8 BUN 30.0 H Creatinine 0.8 Est GFR (CKD-EPI)AfAm 100.57 Est GFR (CKD-EPI)NonAf 86.77 Random Glucose 116 H Calcium 8.9 Total Bilirubin 0.8 AST 32 ALT 45 Alkaline Phosphatase 101 Troponin I 0.03 B-Natriuretic Peptide 1028.2 H Total Protein 5.9 L Albumin 2.7 L 08/17/19 14:52 WBC RBC Hgb Hct MCV MCH MCHC RDW Plt Count MPV Absolute Neuts (auto) Neutrophils % Neutrophils % (Manual) Band Neutrophils % Lymphocytes % Lymphocytes % (Manual) Monocytes % Monocytes % (Manual) Eosinophils % Eosinophils % (Manual) Basophils % Basophils % (Manual) Myelocytes % (Man) Promyelocytes % (Man) Blast Cells % (Manual) Nucleated RBC % Metamyelocytes Hypochromia Platelet Estimate Platelet Comment Polychromasia Poikilocytosis Anisocytosis Microcytosis Macrocytosis VBG pH 7.44 H POC VBG pCO2 40.6 POC VBG pO2 57.9 H VBG HCO3 27.1 VBG O2 Sat (Meg) 88.6 H VBG Base Excess 3.2 H Sodium Potassium Chloride Carbon Dioxide Anion Gap BUN Creatinine Est GFR (CKD-EPI)AfAm Est GFR (CKD-EPI)NonAf Random Glucose Calcium Total Bilirubin AST ALT Alkaline Phosphatase Troponin I B-Natriuretic Peptide Total Protein Albumin ASSESSMENT/PLAN: 74M w/ pmh of Right temporal SDH, dyslipidemia, lung ca(s/p RT [id number]) presents to [facility] with complaint of SOB with productive cough of white sputum. Briefly hypoxic to ~87% while getting ED nebulizer tx. Admitted for COPD excerbation. # acute COPD excerbation > CXR: w/o read but appears normal on my exam - ED: --s/p duoneb x3, solumedrol 125mg -- hypoxia to 87%(undocumented), pulse ox 91% -- Ceftriaxone + Azithromycin x1 - Abx: Ceftriaxone 1g/d + Azithromycin 250 - Solumedrol 40mg q8H - duoneb q6h scheduled, ventolin q4h PRN - fu urine Legionella, Strept # hypoxia > ED: pulse ox 91% on RA > VB.44/40.6/57.9/29.1/88.6 - supplemental O2, titrate O2 % >91% - pre- and post- prior to discharge # abnormal EKG > EKG: sinus w/ premature atrial complexes, QTc 457 > troponin 0.03 > BNP 1028 - repeat EKG in AM # LLE weakness --likely chronic; unlikely CVA - PT evaluation - continue monitoring # ?chronic prednisone usage --pt appears Cushingoid - cw solumedrol - med rec FEN - regular diet PPX - SCDs. No chemical PPX if Neuro w/u is pursued Family Medical History Family History: Denies Visit type - Emergency Visit Emergency Visit: Yes ED Registration Date: 08/17/19 Care time: The patient presented to the Emergency Department on the above date and was hospitalized for further evaluation of their emergent condition. - New Patient This patient is new to me today: Yes Date on this admission: 08/17/19 - Critical Care Critical Care patient: No ATTENDING PHYSICIAN STATEMENT I saw and evaluated the patient. I reviewed the resident's note and discussed the case with the resident. I agree with the resident's findings and plan as documented. SUBJECTIVE: OBJECTIVE: ASSESSMENT AND PLAN:
[2019-08-17] MEDS ORDERED: ALBUTEROL SO4 0.083% IH SOL 2.5 MG/3 ML VIAL.NEB. NEB PRN (18:03)
[2019-08-17] MEDS ORDERED: AZITHROMYCIN IVPB 250 MG in DEXTROSE 5%-WATER - 250 ML IVPB ONE (18:05)
[2019-08-17] MEDS: methylPREDNISolone NA SUCC 40 MG/1 ML VIAL IVPUSH SCH (18:54)
[2019-08-17] MEDS: ALBUTEROL SO4 2.5/IPRATROPIUM 0.5 INH SOL 3 ML VIAL.NEB. NEB SCH (19:33)
[2019-08-17] MEDS ORDERED: methylPREDNISolone NA SUCC 40 MG/1 ML VIAL IVPUSH SCH (21:00)
[2019-08-17] MEDS ORDERED: INSULIN SLIDING SCALE (NOVOLOG) 1 VIAL SQ SCH (22:00)
[2019-08-17] MEDS: ATORVASTATIN CA 20 MG TABLET (FP) PO SCH (22:07)
[2019-08-17] MEDS: CARVEDILOL 3.125 MG TABLET (FP) PO SCH (22:07)
[2019-08-17] MEDS: levETIRAcetam 500 MG TABLET (FP) PO SCH (22:07)
[2019-08-17] MEDS: INSULIN SLIDING SCALE (NOVOLOG) 1 VIAL SQ SCH (22:12)
[2019-08-18] MEDS: methylPREDNISolone NA SUCC 40 MG/1 ML VIAL IVPUSH SCH ×3 (02:54→18:20)
[2019-08-18] MEDS: INSULIN SLIDING SCALE (NOVOLOG) 1 VIAL SQ SCH ×3 (06:57→16:52)
[2019-08-18] MEDS: ALBUTEROL SO4 2.5/IPRATROPIUM 0.5 INH SOL 3 ML VIAL.NEB. NEB SCH ×4 (08:00→20:02)
[2019-08-18 08:14] LABS: HEMATOCRIT 38.5 % (35.4-49); HEMOGLOBIN 12.9 GM/dL (11.7-16.9); MCH 32.1 pg (25.7-33.7); MCHC 33.6 g/dl (32.0-35.9); MEAN CELL VOLUME 95.5 fl (80-96); MEAN PLT VOLUME 8.3 fl (7.5-11.1); PLATELET COUNT 108 K/MM3 (134-434); RBC 4.03 M/mm3 (4.00-5.60); RDW 14.3 % (11.9-15.9); WHITE BLOOD COUNT 7.3 K/mm3 (4.0-10.0)
[2019-08-18 08:24] LABS: BLOOD UREA NITROGEN 22.9 mg/dL (7-18); CALCIUM 8.5 mg/dL (8.5-10.1); CREATININE 0.7 mg/dL (0.55-1.3); MAGNESIUM 1.9 mg/dL (1.8-2.4); PHOSPHOROUS 3.9 mg/dL (2.5-4.9); POTASSIUM 4.1 mmol/L (3.5-5.1)
[2019-08-18] MEDS ORDERED: DEXTROSE 5%-WATER - 50 ML IVPB ONE (09:37)
[2019-08-18] MEDS ORDERED: cefTRIAXone SODIUM 1 GM VIAL ONE (09:37)
[2019-08-18] MEDS: levETIRAcetam 500 MG TABLET (FP) PO SCH ×2 (09:40→21:05)
[2019-08-18] MEDS: PANTOPRAZOLE 40 MG TABLET (FP) PO SCH (09:40)
[2019-08-18] MEDS: CARVEDILOL 3.125 MG TABLET (FP) PO SCH ×2 (09:40→21:05)
[2019-08-18] MEDS ORDERED: AZITHROMYCIN IVPB 250 MG in DEXTROSE 5%-WATER - 250 ML IVPB SCH (10:00)
[2019-08-18] MEDS ORDERED: CEFTRIAXONE 1 GM in DEXTROSE 5%-WATER - 50 ML IVPB SCH (10:00)
--- NOTE | 2019-08-18 10:27 | CON.PULM ---
Consult Consult Specialty:: PULM/CCM Referred by:: Hospitalist Reason for Consultation:: SOB - History of Present Illness Chief Complaint: SOB History of Present Illness: 74 M, History of right sided Lung CA, right temporal SDH, and dyslipidemia. Patient reports being managed at [facility] with 10 sessions of RT to the right lung. He in unsure of his staging or cell type. His last followup with the oncologist (? Dr Martins) was in June 2018. He says that he is followed by his PMD, Dr Dwyer. Admitted via the ER due to a few weeks of progressive shortness of breath and cough with white/clear sputum. No fever or chills. No hemoptysis or night sweats. No recent travel history or sick contacts. Unclear whether he takes chronic steroids. Last hospitalization was about 1 year ago. There is no history that would be consistent with [facility]. - History Source History Provided By: Patient Limitations to Obtaining History: Poor Historian - Past Medical History Pulmonary: Yes: Bronchitis, Cancer, COPD, Pneumonia. No: Asthma, O2 Dependent, Previously Intubated, Pulmonary Embolus, Pulmonary Fibrosis, Sleep Apnea - Alcohol/Substance Use Hx Alcohol Use: (unknown) - Smoking History Smoking history: Former smoker Have you smoked in the past 12 months: No Home Medications - Allergies Allergies/Adverse Reactions: Allergies Allergy/AdvReac Type Severity Reaction Status Date / Time No Known Allergies Allergy Verified 08/17/19 13:56 - Home Medications Home Medications: Ambulatory Orders Atorvastatin Ca [Lipitor] 20 mg PO HS 08/17/19 Carvedilol [Coreg -] 3.125 mg PO BID 08/17/19 Omeprazole 40 mg PO 08/17/19 levETIRAcetam [Keppra -] 500 mg PO BID 08/17/19 Review of Systems - Review of Systems Constitutional: reports: Lethargy, Malaise. denies: Chills, Fever, Night Sweats , Unintentional Wgt. Loss Eyes: reports: No Symptoms HENT: reports: No Symptoms Neck: reports: No Symptoms Cardiovascular: reports: Shortness of Breath. denies: Chest Pain, Edema, Palpitations Respiratory: reports: Cough, SOB, SOB on Exertion, Wheezing. denies: Hemoptysis , Orthopnea, PND, Snoring Gastrointestinal: reports: No Symptoms Genitourinary: reports: No Symptoms Breasts: reports: No Symptoms Reported Musculoskeletal: reports: No Symptoms Integumentary: reports: No Symptoms Neurological: reports: No Symptoms Endocrine: reports: No Symptoms Hematology/Lymphatic: reports: No Symptoms Psychiatric: reports: No Symptoms Physical Exam Vital Sings: Vital Signs Temperature 97.7 F 08/18/19 06:00 Pulse Rate 88 08/18/19 06:00 Respiratory Rate 18 08/18/19 06:00 Blood Pressure 140/86 08/18/19 06:00 O2 Sat by Pulse Oximetry (%) 96 08/18/19 01:50 Constitutional: Yes: Mild Distress Eyes: Yes: Conjunctiva Clear, EOM Intact HENT: Yes: Atraumatic, Normocephalic Neck: Yes: Supple, Trachea Midline Cardiovascular: Yes: Regular Rate and Rhythm Respiratory: Yes: Cough, On Nasal O2, Rhonchi, SOB, SOB on Exertion, Tachypnea, Wheezes. No: Accessory Muscle Use, Rales, Stridor ...Inspection: Yes: WNL ...Clubbing: No Gastrointestinal: Yes: Normal Bowel Sounds, Soft Renal/: Yes: WNL Musculoskeletal: Yes: WNL Extremities: Yes: WNL Edema: No Peripheral Pulses WNL: Yes Integumentary: Yes: WNL Neurological: Yes: WNL, Alert, Oriented ...Motor Strength: WNL Psychiatric: Yes: WNL, Alert, Oriented Labs: CBC, BMP 08/18/19 07:40 08/18/19 07:40 Imaging - Results Chest X-ray: Report Reviewed, Image Reviewed Problem List - Problems (1) Atelectasis Code(s): J98.11 - ATELECTASIS (2) Lung cancer Code(s): C34.90 - MALIGNANT NEOPLASM OF UNSP PART OF UNSP BRONCHUS OR LUNG (3) COPD exacerbation Code(s): J44.1 - CHRONIC OBSTRUCTIVE PULMONARY DISEASE W (ACUTE) EXACERBATION (4) Subdural hematoma Code(s): S06.5X9A - TRAUM SUBDR HEM W LOC OF UNSP DURATION, INIT Assessment/Plan Medrol BD TX Zithromax / will DC Rocephin No smoking counseled Need to get more information regarding Lung CA from Dr Dwyer PFTs as an outpatient once discharged and stable Will follow Thank you Dr Hood
[2019-08-18] MEDS ORDERED: INSULIN (NOVOLOG) ASPART 100 UNITS/ML 10ML VIAL ONE ×2 (11:14→20:48)
--- NOTE | 2019-08-18 15:38 | PN ---
Progress Note (short form) - Note Progress Note: Subjective: feels his breathins is much better. he reports sleeping on two pillows, not changed form before. reports productive cough of white sputum. No fever or chills. No MACEDO. no cp or diarrhea/abd pain. Objective: Vital Signs: Last Vital Signs Temp Pulse Resp BP Pulse Ox 98.2 F 96 H 20 106/61 96 08/18/19 15:04 08/18/19 15:04 08/18/19 15:04 08/18/19 15:04 08/18/19 09:00 Laboratory Results - last 24 hr 08/17/19 08/17/19 08/17/19 14:52 14:52 22:11 WBC RBC Hgb Hct MCV MCH MCHC RDW Plt Count MPV Neutrophils % (Manual) 68.0 Band Neutrophils % 13.4 Lymphocytes % (Manual) 5.2 L Monocytes % (Manual) 8 Eosinophils % (Manual) 0.0 Basophils % (Manual) 0.0 Myelocytes % (Man) 0 Promyelocytes % (Man) 0 Blast Cells % (Manual) 0 Nucleated RBC % 1 H Metamyelocytes 1 Hypochromia 0 Platelet Estimate Decreased Platelet Comment Present Polychromasia 0 Poikilocytosis 0 Anisocytosis 0 Microcytosis 0 Macrocytosis 0 Sodium 142 Potassium 5.0 Chloride 106 Carbon Dioxide 28 Anion Gap 8 BUN 30.0 H Creatinine 0.8 Est GFR (CKD-EPI)AfAm 100.57 Est GFR (CKD-EPI)NonAf 86.77 POC Glucometer 341 Random Glucose 116 H Hemoglobin A1c % Calcium 8.9 Phosphorus Magnesium Total Bilirubin 0.8 AST 32 ALT 45 Alkaline Phosphatase 101 B-Natriuretic Peptide 1028.2 H Total Protein 5.9 L Albumin 2.7 L TSH Thyroxine (T4) Influenza A (Rapid) Influenza B (Rapid) 08/18/19 08/18/19 08/18/19 06:56 07:40 07:40 WBC 7.3 RBC 4.03 Hgb 12.9 Hct 38.5 MCV 95.5 MCH 32.1 MCHC 33.6 RDW 14.3 Plt Count 108 L MPV 8.3 Neutrophils % (Manual) Band Neutrophils % Lymphocytes % (Manual) Monocytes % (Manual) Eosinophils % (Manual) Basophils % (Manual) Myelocytes % (Man) Promyelocytes % (Man) Blast Cells % (Manual) Nucleated RBC % Metamyelocytes Hypochromia Platelet Estimate Platelet Comment Polychromasia Poikilocytosis Anisocytosis Microcytosis Macrocytosis Sodium 141 Potassium 4.1 Chloride 106 Carbon Dioxide 28 Anion Gap 7 L BUN 22.9 H Creatinine 0.7 Est GFR (CKD-EPI)AfAm 106.24 Est GFR (CKD-EPI)NonAf 91.67 POC Glucometer 145 Random Glucose 126 H Hemoglobin A1c % Calcium 8.5 Phosphorus 3.9 Magnesium 1.9 Total Bilirubin AST ALT Alkaline Phosphatase B-Natriuretic Peptide Total Protein Albumin TSH 0.26 L Thyroxine (T4) 5.5 Influenza A (Rapid) Influenza B (Rapid) 08/18/19 08/18/19 08/18/19 07:40 11:11 14:35 WBC RBC Hgb Hct MCV MCH MCHC RDW Plt Count MPV Neutrophils % (Manual) Band Neutrophils % Lymphocytes % (Manual) Monocytes % (Manual) Eosinophils % (Manual) Basophils % (Manual) Myelocytes % (Man) Promyelocytes % (Man) Blast Cells % (Manual) Nucleated RBC % Metamyelocytes Hypochromia Platelet Estimate Platelet Comment Polychromasia Poikilocytosis Anisocytosis Microcytosis Macrocytosis Sodium Potassium Chloride Carbon Dioxide Anion Gap BUN Creatinine Est GFR (CKD-EPI)AfAm Est GFR (CKD-EPI)NonAf POC Glucometer 278 Random Glucose Hemoglobin A1c % 7.9 H Calcium Phosphorus Magnesium Total Bilirubin AST ALT Alkaline Phosphatase B-Natriuretic Peptide Total Protein Albumin TSH Thyroxine (T4) Influenza A (Rapid) Negative Influenza B (Rapid) Positive A Physical Exam: AND, awake, alert, cooperative. oropharynx with slight erythema. no exudate, not the whole pharynx was visualized CV: RRR Lungs: clear with decreased breath sounds at upper lobs, Abd: soft, NT, ND. Ext : No edema or erythema Imaging: Cxray reviewed. EKG reviewed. Assessment/Plan: 74 y/o man with h/o R lung cancer, s/p radiation, R SDH, to lung field, HLP, who presented with SOB . he was diagnosed with COPD exacerbation 1- SOB, could be due to COPD exacerbation as he was a smoker, quit 1 yr ago. also , might be contributing some lung disease from radiation . need to r/o viral illness. - order Flu swab in this gentleman with compromised lungs - cont steroids and breathing treatments - Not sure he needs O2, but will check pre-post tomorrow - If flu is + will treat - No evidence of PNA , agree with stopping ceftriaxone - change azithro to Doxy due to slightly prolonged Qtc. last day of Abx tomorrow 2- H/o R lung cancer, s/p radiation . No chemo. - f/u with his oncologist and oil extractor as out pt. 3- H/o Subdural hematoma. - cont Keppra 4- New onset DM. A1c 7.9 - SSI here - will beauty counselor and start metformin at dc - place dietitian consult 5- I can't reach his pharmacy, [facility] to confirm his home meds list. will try tomorrow 6- DVT px: start Heparin SQ PPI for GI prophylaxis Visit type - Emergency Visit Emergency Visit: Yes ED Registration Date: 08/17/19 Care time: The patient presented to the Emergency Department on the above date and was hospitalized for further evaluation of their emergent condition. - New Patient This patient is new to me today: Yes Date on this admission: 08/18/19 - Critical Care Critical Care patient: No
[2019-08-18] MEDS: OSELTAMIVIR PHOSPHATE 75 MG CAPSULE PO SCH ×2 (18:21→22:03)
[2019-08-18] MEDS: HEPARIN NA (PORCINE) 5,000 UNITS/ML 1ML VIAL SQ SCH (21:04)
[2019-08-18] MEDS: ATORVASTATIN CA 20 MG TABLET (FP) PO SCH (21:05)
[2019-08-18] MEDS ORDERED: PT OWN MED DRAWER 7, Y5N ONE (21:06)
[2019-08-18 21:40] LABS: URINE APPEARANCE CLEAR; URINE BILIRUBIN NEGATIVE (NEGATIVE); URINE COLOR YELLOW; URINE GLUCOSE (UA) 2+ (NEGATIVE); URINE KETONE NEGATIVE (NEGATIVE); URINE LEUK ESTERASE NEGATIVE (NEGATIVE); URINE NITRITE NEGATIVE (NEGATIVE); URINE PROTEIN NEGATIVE (NEGATIVE); URINE UROBILINOGEN 0.2 mg/dL (0.2-1.0)
[2019-08-19] MEDS: methylPREDNISolone NA SUCC 40 MG/1 ML VIAL IVPUSH SCH ×3 (01:32→17:17)
--- NOTE | 2019-08-19 05:21 | EKG ---
Test Reason : Blood Pressure : / mmHG Vent. Rate : 095 BPM Atrial Rate : 095 BPM P-R Int : 130 ms QRS Dur : 074 ms QT Int : 364 ms P-R-T Axes : 076 075 077 degrees QTc Int : 457 ms POOR DATA QUALITY, INTERPRETATION MAY BE ADVERSELY AFFECTED SINUS RHYTHM WITH PREMATURE ATRIAL COMPLEXES OTHERWISE NORMAL ECG WHEN COMPARED WITH ECG OF 22-APR-2019 17:05, PREMATURE ATRIAL COMPLEXES ARE NOW PRESENT Confirmed by LI CARROLL MD ([id number]) on 08/19/2019 5:21:17 AM Referred By: Confirmed By:LI CARROLL MD
[2019-08-19] MEDS: INSULIN SLIDING SCALE (NOVOLOG) 1 VIAL SQ SCH ×3 (06:09→17:15)
[2019-08-19] MEDS: HEPARIN NA (PORCINE) 5,000 UNITS/ML 1ML VIAL SQ SCH ×3 (06:11→21:40)
[2019-08-19] MEDS: ALBUTEROL SO4 2.5/IPRATROPIUM 0.5 INH SOL 3 ML VIAL.NEB. NEB SCH ×4 (07:30→20:14)
[2019-08-19] MEDS ORDERED: PT OWN MED DRAWER 7, Y5N ONE ×2 (08:54→21:16)
[2019-08-19] MEDS: PANTOPRAZOLE 40 MG TABLET (FP) PO SCH (09:02)
[2019-08-19] MEDS: CARVEDILOL 3.125 MG TABLET (FP) PO SCH ×2 (09:02→21:40)
[2019-08-19] MEDS: levETIRAcetam 500 MG TABLET (FP) PO SCH ×2 (09:03→21:41)
[2019-08-19] MEDS: OSELTAMIVIR PHOSPHATE 75 MG CAPSULE PO SCH ×2 (09:27→21:40)
[2019-08-19] MEDS ORDERED: DOXYCYCLINE HYCLATE 100 MG CAPSULE PO SCH (10:00)
[2019-08-19] MEDS ORDERED: INSULIN (NOVOLOG) ASPART 100 UNITS/ML 10ML VIAL ONE (11:40)
--- NOTE | 2019-08-19 12:49 | PN ---
Progress Note (short form) - Note Progress Note: PULMONARY OFFERS NO COMPLAINTS VSS/AFEBRILE Eyes: Yes: Conjunctiva Clear, EOM Intact HENT: Yes: Atraumatic, Normocephalic Neck: Yes: Supple, Trachea Midline Cardiovascular: Yes: Regular Rate and Rhythm Respiratory: Yes: Cough, On Nasal O2, Rhonchi, SOB, SOB on Exertion, Tachypnea, Wheezes. No: Accessory Muscle Use, Rales, Stridor ...Inspection: Yes: WNL ...Clubbing: No Gastrointestinal: Yes: Normal Bowel Sounds, Soft Renal/: Yes: WNL Musculoskeletal: Yes: WNL Extremities: Yes: WNL Edema: No Peripheral Pulses WNL: Yes Integumentary: Yes: WNL Neurological: Yes: WNL, Alert, Oriented ...Motor Strength: WNL Psychiatric: Yes: WNL, Alert, Oriented Labs: NOTED - Results Chest X-ray: Report Reviewed, Image Reviewed Problem List - Problems (1) Atelectasis Code(s): J98.11 - ATELECTASIS (2) Lung cancer Code(s): C34.90 - MALIGNANT NEOPLASM OF UNSP PART OF UNSP BRONCHUS OR LUNG (3) COPD exacerbation Code(s): J44.1 - CHRONIC OBSTRUCTIVE PULMONARY DISEASE W (ACUTE) EXACERBATION (4) Subdural hematoma Code(s): S06.5X9A - TRAUM SUBDR HEM W LOC OF UNSP DURATION, INIT Assessment/Plan Medrol BD TX Tamiflu No smoking counseled PFTs as an outpatient once discharged and stable Will follow Chery POPE MD
--- NOTE | 2019-08-19 17:23 | PN ---
Physical Exam: SUBJECTIVE: Patient seen and examined NAEON Denies SOB. Has cough. Able to walk to bathroom OBJECTIVE: Vital Signs Period Temp Pulse Resp BP Sys/Hummel Pulse Ox Last 24 Hr 98.2 F-98.5 F 80-99 18-22 102-136/58-96 93-95 GENERAL: Awake, alert, and fully oriented. NAD HEAD: Normal with no signs of trauma. EYES: Extraocular movements intact, sclera anicteric, conjunctiva clear. No lid lag. Mild periorbital edema EARS, NOSE, THROAT: Ears normal, nares patent, oropharynx clear without exudates. Moist mucous membranes. NECK: Normal range of motion, supple without lymphadenopathy, JVD, or masses. LUNGS: mild crackles to bases, bilaterally. No wheezes. No accessory muscle use. On RA 2L. Occasional expiratory breaths through pursed lips HEART: Regular rate and rhythm, normal S1 and S2 without murmur, rub or gallop. ABDOMEN: Soft, nontender, not distended, no guarding, no rebound, no masses. Protuberant abdomen. MUSCULOSKELETAL: Normal range of motion at all joints. No bony deformities or tenderness. Thin BUE and BLE UPPER EXTREMITIES: 2+ pulses, warm, well-perfused. No cyanosis. No clubbing. No peripheral edema. LOWER EXTREMITIES: 2+ pulses, warm, well-perfused. No calf tenderness. No peripheral edema. SKIN: Warm, dry, normal turgor. Multiple Nevi of the back. Vikram appearing skin Laboratory Results - last 24 hr 08/18/19 08/18/19 08/19/19 20:45 20:50 05:41 POC Glucometer 292 338 Urine Color Yellow Urine Appearance Clear Urine pH 5.0 Ur Specific [place] 1.022 Urine Protein Negative Urine Glucose (UA) 2+ H Urine Ketones Negative Urine Blood Negative Urine Nitrite Negative Urine Bilirubin Negative Urine Urobilinogen 0.2 Ur Leukocyte Esterase Negative 08/19/19 08/19/19 11:37 16:23 POC Glucometer 267 247 Urine Color Urine Appearance Urine pH Ur Specific Len[place] Urine Protein Urine Glucose (UA) Urine Ketones Urine Blood Urine Nitrite Urine Bilirubin Urine Urobilinogen Ur Leukocyte Esterase Active Medications Generic Name Dose Route Start Last Admin Trade Name Freq PRN Reason Stop Dose Admin Albuterol Sulfate 1 amp 08/17/19 18:03 Ventolin 0.083% Nebulizer Soln - NEB Q4H PRN SHORT OF BREATH/WHEEZING Albuterol/Ipratropium 1 amp 08/17/19 20:00 08/19/19 15:19 Duoneb - NEB 1 amp RQID HARPREET Administration Atorvastatin Calcium 20 mg 08/17/19 22:00 08/18/19 21:05 Lipitor - PO 20 mg HS HARPREET Administration Carvedilol 3.125 mg 08/17/19 22:00 08/19/19 09:02 Coreg - PO 3.125 mg BID HARPREET Administration Heparin Sodium (Porcine) 5,000 unit 08/18/19 22:00 08/19/19 13:28 Heparin - SQ 5,000 unit TID HARPREET Administration Insulin Aspart 1 vial 08/18/19 16:30 08/19/19 11:42 Novolog Vial Sliding Scale - SQ 6 units TIDAC HARPREET Administration Protocol Levetiracetam 500 mg 08/17/19 22:00 08/19/19 09:03 Keppra - PO 500 mg BID HARPREET Administration Methylprednisolone Sodium Succinate 40 mg 08/17/19 18:45 08/19/19 09:03 Solu-Medrol - IVPUSH 40 mg Q8H-IV HARPREET Administration Oseltamivir Phosphate 75 mg 08/18/19 16:00 08/19/19 09:27 Tamiflu - PO 08/23/19 15:59 75 mg BID HARPREET Administration Pantoprazole Sodium 40 mg 08/18/19 10:00 08/19/19 09:02 Protonix - PO 40 mg DAILY HARPREET Administration ASSESSMENT/PLAN: 74M w/ pmh of Right temporal SDH, dyslipidemia, lung ca(s/p RT [id number]) presents to [facility] with complaint of SOB with productive cough of white sputum. Briefly hypoxic to ~87% while getting ED nebulizer tx. Admitted for COPD excerbation. Pulm consulted which recommended obtaining OSH Lung Ca records, outpatient PFTs, Azithromycin only. OSH from [facility] reviewed. Patient had suspcious lung mass on imaging after fall. BAL and bronchoscopic bx were negative. Mass grew in size and patient was recommended wedge resection which he refused. Underwent RT. 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 # acute COPD excerbation > CXR(08/17/19): atelectasis of RUL > CXR(08/18/19): unchanged - ED: --s/p duoneb x3, solumedrol 125mg -- hypoxia to 87%(undocumented), pulse ox 91% -- Ceftriaxone + Azithromycin x1 - Abx: Azithromycin 250 - Solumedrol 40mg q8H - duoneb q6h scheduled, ventolin q4h PRN # influenza infection > infuenza B positive - Oseltamivir[TAMIFLU] --day 2, for 5d total # new onset T2DM --likely 2/2 to chronic steroid usage > HbA1c 7.9 - on ISS - will need home metformin, glucometer, fingerstick teaching # hypoxia > ED: pulse ox 91% on RA > VB.44/40.6/57.9/29.1/88.6 - supplemental O2, titrate O2 % >91% - pre- and post- prior to discharge > RT: 87% on RA, 93% on 3L # abnormal EKG > EKG: sinus w/ premature atrial complexes, QTc 457 > troponin 0.03 > BNP 1028 - cw monitoring # LLE weakness --likely chronic; unlikely CVA - PT evaluation: 40ft, rec STR - continue monitoring # chronic steroid usage --pt appears Cushingoid - cw solumedrol - med rec: dexamethasone 4mg BID(Dr Dwyer) FEN - regular diet PPX - SCDs. No chemical PPX if Neuro w/u is pursued DISPO - needs home O2 - STR vs SNF vs home-VNS Visit type - Emergency Visit Emergency Visit: No - New Patient This patient is new to me today: No - Critical Care Critical Care patient: No ATTENDING PHYSICIAN STATEMENT I saw and evaluated the patient. I reviewed the resident's note and discussed the case with the resident. I agree with the resident's findings and plan as documented. SUBJECTIVE: OBJECTIVE: ASSESSMENT AND PLAN:
--- NOTE | 2019-08-19 17:40 | PN ---
Teaching Attending Note Name of Resident: Karthikeyan Smith ATTENDING PHYSICIAN STATEMENT I saw and evaluated the patient. I reviewed the resident's note and discussed the case with the resident. I agree with the resident's findings and plan as documented. SUBJECTIVE: no SOB, he feels his breathing is at his base line. no CP . no cough. OBJECTIVE: AND, awake, alert, cooperative. CV: RRR Lungs: decreased breath sounds at bases. good air entry . scattered wheezes Ext : No edema or erythema Assessment/Plan: 74 y/o man with h/o R lung cancer, s/p radiation,brain Mets, R SDH, to lung field, HLP, who presented with SOB . he was diagnosed with COPD exacerbation 1- Acute COPD exacerbation, Influenza A. - case was d/w dr. Hood who agrees with po steroids. - the patient is on 4 mg of decadron BID at home for brain mets ( = 26 mg of prednisone BID) . will switch patient to decadron 6 mg BID ( = prednisone 40 BID ) for 2 more days then decrease to his home dose of 4 BID - cont Nebs . - He needs 3 L of O2 at rest. refused to walk with resp therapist to assess ambulatory needs - last day of doxy today fo rantiinflammatory effect 2- H/o R lung cancer, s/p radiation. -team spoke to [facility], and nephew. basically patient had a non diagnostic Lung Bx and bronch. brain mets were found , and resectionwas recommended, but patient refused. He started radiation to brain and lung - he will continue to follow with his radiation oncologist - also, dose of decadron was confirmed : 4 mg BID ( he is on a taper , last drop in dose was per PCP) - cont Keppra 3- H/o Subdural hematoma. 4- New onset DM. A1c 7.9 - SSI here - start metformin at dc patient was ready medically for dc today. he is thinking about SNF which was recommended. in am he will make decision . need O2 at dc
[2019-08-19] MEDS: ATORVASTATIN CA 20 MG TABLET (FP) PO SCH (21:40)
[2019-08-20] MEDS: HEPARIN NA (PORCINE) 5,000 UNITS/ML 1ML VIAL SQ SCH ×3 (06:12→21:43)
[2019-08-20] MEDS: INSULIN SLIDING SCALE (NOVOLOG) 1 VIAL SQ SCH ×3 (06:13→17:32)
[2019-08-20] MEDS: ALBUTEROL SO4 2.5/IPRATROPIUM 0.5 INH SOL 3 ML VIAL.NEB. NEB SCH ×4 (07:35→20:10)
[2019-08-20 09:18] LABS: HEMATOCRIT 39.4 % (35.4-49); HEMOGLOBIN 13.1 GM/dL (11.7-16.9); MCH 31.7 pg (25.7-33.7); MCHC 33.2 g/dl (32.0-35.9); MEAN CELL VOLUME 95.5 fl (80-96); MEAN PLT VOLUME 8.4 fl (7.5-11.1); PLATELET COUNT 124 K/MM3 (134-434); RBC 4.13 M/mm3 (4.00-5.60); RDW 14.7 % (11.9-15.9); WHITE BLOOD COUNT 8.6 K/mm3 (4.0-10.0)
[2019-08-20] MEDS ORDERED: PT OWN MED DRAWER 7, Y5N ONE (09:28)
[2019-08-20] MEDS: DEXAMETHASONE 4 MG TABLET (FP) PO SCH ×2 (09:33→21:43)
[2019-08-20] MEDS: CARVEDILOL 3.125 MG TABLET (FP) PO SCH ×2 (09:33→21:43)
[2019-08-20] MEDS: PANTOPRAZOLE 40 MG TABLET (FP) PO SCH (09:33)
[2019-08-20] MEDS: levETIRAcetam 500 MG TABLET (FP) PO SCH ×2 (09:33→21:43)
[2019-08-20] MEDS: OSELTAMIVIR PHOSPHATE 75 MG CAPSULE PO SCH ×2 (09:33→21:43)
[2019-08-20 10:01] LABS: BLOOD UREA NITROGEN 22.7 mg/dL (7-18); CALCIUM 8.6 mg/dL (8.5-10.1); CREATININE 0.6 mg/dL (0.55-1.3); MAGNESIUM 1.9 mg/dL (1.8-2.4)
--- NOTE | 2019-08-20 13:37 | PN ---
Progress Note (short form) - Note Progress Note: Breathing feels overall better. Some dry cough. No CP. No acute events overnight. Intake & Output 08/17/19 08/18/19 08/19/19 08/20/19 23:59 23:59 23:59 23:59 Intake Total 200 600 480 820 Output Total 800 Balance 200 600 -320 820 Weight 142 lb 142 lb Last Vital Signs Temp Pulse Resp BP Pulse Ox 98.1 F 72 18 99/67 94 L 08/20/19 09:37 08/20/19 12:46 08/20/19 09:37 08/20/19 09:37 08/20/19 12:46 Active Medications Albuterol Sulfate (Ventolin 0.083% Nebulizer Soln -) 1 amp NEB Q4H PRN PRN Reason: SHORT OF BREATH/WHEEZING Albuterol/Ipratropium (Duoneb -) 1 amp NEB RQID [facility] Last Admin: 08/20/19 12:12 Dose: 1 amp Atorvastatin Calcium (Lipitor -) 20 mg PO HS [facility] Last Admin: 08/19/19 21:40 Dose: 20 mg Carvedilol (Coreg -) 3.125 mg PO BID [facility] Last Admin: 08/20/19 09:33 Dose: 3.125 mg Dexamethasone (Decadron -) 6 mg PO BID [facility] Last Admin: 08/20/19 09:33 Dose: 6 mg Heparin Sodium (Porcine) (Heparin -) 5,000 unit SQ TID [facility] Last Admin: 08/20/19 06:12 Dose: 5,000 unit Insulin Aspart (Novolog Vial Sliding Scale -) 1 vial SQ TIDAC [facility]; Protocol Last Admin: 08/20/19 11:41 Dose: Not Given Levetiracetam (Keppra -) 500 mg PO BID [facility] Last Admin: 08/20/19 09:33 Dose: 500 mg Oseltamivir Phosphate (Tamiflu -) 75 mg PO BID [facility] Stop: 08/23/19 15:59 Last Admin: 08/20/19 09:33 Dose: 75 mg Pantoprazole Sodium (Protonix -) 40 mg PO DAILY [facility] Last Admin: 08/20/19 09:33 Dose: 40 mg Constitutional: Yes: NAD Eyes: Yes: Conjunctiv: Clear, EOM Intact HENT: Yes: Atraumatic, Normocephalic Neck: Yes: Supple, Trachea Midline Cardiovascular: Yes: Regular Rate and Rhythm Respiratory: Yes: Cough, On Nasal O2, Rhonchi. No: Wheezes, Accessory Muscle Use, Rales, Stridor ...Inspection: Yes: WNL ...Clubbing: No Gastrointestinal: Yes: Normal Bowel Sounds, Soft Renal/: Yes: WNL Musculoskeletal: Yes: WNL Extremities: Yes: WNL Edema: No Peripheral Pulses WNL: Yes Integumentary: Yes: WNL Neurological: Yes: WNL, Alert, Oriented ...Motor Strength: WNL Psychiatric: Yes: WNL, Alert, Oriented Labs: Laboratory Results - last 24 hr 08/19/19 08/19/19 08/20/19 16:23 21:48 05:52 WBC RBC Hgb Hct MCV MCH MCHC RDW Plt Count MPV Sodium Potassium Chloride Carbon Dioxide Anion Gap BUN Creatinine Est GFR (CKD-EPI)AfAm Est GFR (CKD-EPI)NonAf POC Glucometer 247 304 198 Random Glucose Calcium Phosphorus Magnesium 08/20/19 08/20/19 08/20/19 07:15 07:15 11:38 WBC 8.6 RBC 4.13 Hgb 13.1 Hct 39.4 MCV 95.5 MCH 31.7 MCHC 33.2 RDW 14.7 Plt Count 124 L MPV 8.4 Sodium 142 Potassium 4.0 Chloride 108 H Carbon Dioxide 28 Anion Gap 6 L BUN 22.7 H Creatinine 0.6 Est GFR (CKD-EPI)AfAm 113.19 Est GFR (CKD-EPI)NonAf 97.66 POC Glucometer 122 Random Glucose 154 H Calcium 8.6 Phosphorus 3.0 Magnesium 1.9 Problem List - Problems (1) Atelectasis Code(s): J98.11 - ATELECTASIS (2) Lung cancer Code(s): C34.90 - MALIGNANT NEOPLASM OF UNSP PART OF UNSP BRONCHUS OR LUNG (3) COPD exacerbation Code(s): J44.1 - CHRONIC OBSTRUCTIVE PULMONARY DISEASE W (ACUTE) EXACERBATION (4) Subdural hematoma Code(s): S06.5X9A - TRAUM SUBDR HEM W LOC OF UNSP DURATION, INIT Assessment/Plan Noted Decadron BD TX Tamiflu BID Monitor off ABX No smoking counseled PFTs as an outpatient once discharged and stable Patient to follow up with primary MD for further lung mass workup There is no Pulmonary contraindication for DC home Dr Hood Problem List - Problems (1) Atelectasis Code(s): J98.11 - ATELECTASIS (2) Lung cancer Code(s): C34.90 - MALIGNANT NEOPLASM OF UNSP PART OF UNSP BRONCHUS OR LUNG (3) COPD exacerbation Code(s): J44.1 - CHRONIC OBSTRUCTIVE PULMONARY DISEASE W (ACUTE) EXACERBATION (4) Subdural hematoma Code(s): S06.5X9A - TRAUM SUBDR HEM W LOC OF UNSP DURATION, INIT
--- NOTE | 2019-08-20 15:47 | PN ---
Teaching Attending Note Name of Resident: Karthikeyan Smith ATTENDING PHYSICIAN STATEMENT I saw and evaluated the patient. I reviewed the resident's note and discussed the case with the resident. I agree with the resident's findings and plan as documented. SUBJECTIVE: no fever or chills. No SOB . No CP. OBJECTIVE: AND, awake, alert, cooperative. CV: RRR Lungs: decreased breath sounds at bases. good air entry .no wheezes Ext : No edema or erythema Assessment/Plan: 74 y/o man with h/o R lung cancer, s/p radiation,brain Mets, R SDH, to lung field, HLP, who presented with SOB . he was diagnosed with COPD exacerbation 1- Acute COPD exacerbation, Influenza A. - cont decadron 6 mg BID ( = prednisone 40 BID ) for one more day then decrease to his home dose of 4 BID - cont Nebs. - He needs 3 L of O2 at rest and ambulation . he was advised not to smoke to avoid face burn - cont tamiflu to complete 5 days 2- H/o suspected R lung cancer with brain mets , s/p radiation. - follow up with his rad onc and onc as out pt - further taper of his decadron per his treating team - cont Keppra 3- H/o Subdural hematoma. 4- New onset DM. A1c 7.9 - start metformin at dc - advised foot and eye exam yearly - prescribed glucometer and accessories Nephew was updated throughout the hospital stay. he will be called today by team dc to rehab
--- NOTE | 2019-08-20 17:38 | DS ---
Physical Exam: SUBJECTIVE: Patient seen and examined OBJECTIVE: Vital Signs Period Temp Pulse Resp BP Sys/Hummel Pulse Ox Last 24 Hr 97.7 F-98.6 F 68-92 18-19 99-137/67-88 94-96 PHYSICAL EXAM GENERAL: Awake, alert, and fully oriented. NAD HEAD: Normal with no signs of trauma. EYES: Extraocular movements intact, sclera anicteric, conjunctiva clear. No lid lag. Mild periorbital edema EARS, NOSE, THROAT: Ears normal, nares patent, oropharynx clear without exudates. Moist mucous membranes. NECK: Normal range of motion, supple without lymphadenopathy, JVD, or masses. LUNGS: mild crackles to bases, bilaterally. No wheezes. No accessory muscle use. On RA 2L. Occasional expiratory breaths through pursed lips HEART: Regular rate and rhythm, normal S1 and S2 without murmur, rub or gallop. ABDOMEN: Soft, nontender, not distended, no guarding, no rebound, no masses. Protuberant abdomen. MUSCULOSKELETAL: Normal range of motion at all joints. No bony deformities or tenderness. Thin BUE and BLE UPPER EXTREMITIES: 2+ pulses, warm, well-perfused. No cyanosis. No clubbing. No peripheral edema. LOWER EXTREMITIES: 2+ pulses, warm, well-perfused. No calf tenderness. No peripheral edema. SKIN: Warm, dry, normal turgor. Multiple Nevi of the back. Vikram appearing skin LABS Laboratory Results - last 24 hr 08/19/19 08/20/19 08/20/19 21:48 05:52 07:15 WBC 8.6 RBC 4.13 Hgb 13.1 Hct 39.4 MCV 95.5 MCH 31.7 MCHC 33.2 RDW 14.7 Plt Count 124 L MPV 8.4 Sodium Potassium Chloride Carbon Dioxide Anion Gap BUN Creatinine Est GFR (CKD-EPI)AfAm Est GFR (CKD-EPI)NonAf POC Glucometer 304 198 Random Glucose Calcium Phosphorus Magnesium 08/20/19 08/20/19 08/20/19 07:15 11:38 17:27 WBC RBC Hgb Hct MCV MCH MCHC RDW Plt Count MPV Sodium 142 Potassium 4.0 Chloride 108 H Carbon Dioxide 28 Anion Gap 6 L BUN 22.7 H Creatinine 0.6 Est GFR (CKD-EPI)AfAm 113.19 Est GFR (CKD-EPI)NonAf 97.66 POC Glucometer 122 284 Random Glucose 154 H Calcium 8.6 Phosphorus 3.0 Magnesium 1.9 HOSPITAL COURSE: Date of Admission:08/17/19 Date of Discharge: 08/20/19 74M w/ pmh of Right temporal SDH, dyslipidemia, lung ca(s/p RT [id number]) presents to [facility] with complaint of SOB with productive cough of white sputum. Briefly hypoxic to ~87% while getting ED nebulizer tx. Admitted for COPD excerbation. Pulm consulted which recommended obtaining OSH Lung Ca records, outpatient PFTs, Azithromycin only. OSH from [facility] reviewed. Patient had suspcious lung mass on imaging after fall. BAL and bronchoscopic bx were negative. Mass grew in size and patient was recommended wedge resection which he refused. Underwent RT. Experienced fall in Mar 2019, transferred from [facility] to [facility] for two new frontal and temporal lobe lesions suggestive of lung Ca mets to brain. While hospitalized in [facility], received azithromycin x3d. Labwork showed new- onset diabetes w/ HbA1c 7.9. Metformin to be started as outpatient. Pt was flu positive, started Tamiflu. RT evaluation determined that pt needed home O2, 3L. Stable for discharge to SNF vs STR Minutes to complete discharge: 36 Discharge Summary Problems reviewed: Yes Reason For Visit: ACUTE EXACERBATION OF COPD; HYPOXIA Current Active Problems Atelectasis (Acute) COPD exacerbation (Acute) Influenza B (Acute) Lung cancer (Chronic) Condition: Improved - Instructions Diet, Activity, Other Instructions: You were evaluated in the hospital for shortness of breath and trouble breathing. Testing showed that you positive for the Influenza Virus. You were given inhaled medications to help you breathe better. You also received intravenous steroids, intravenous antibiotics, and a antiviral medication. Your symptoms improved. A respiratory therapist determined that you would benefit from home oxygen therapy Medications: - NEW Medications: -- Albuterol/Ipratropium[DUONEG] 1 ampule, up to 4 times daily for shortness of breath -- Oseltamivir Phosphate[TAMIFLU] 75mg, twice a day for 3 additional days, to be finished on 08/23/19 -- Metformin XL 500mg, once daily -- oxygen therapy, 3L via nasal cannula at rest and wi th ambulation and during night time - CHANGE in Medications: -- dexamethasone[DECADRON], 6mg twice a day for today and tomorrow then resume your 4mg twice a day dosage - you will be prescribed a Glucometer to check your blood sugar everyday - resume other home medications Additional instructions: - check your blood sugars, 3 times a day, prior meals. Please record the date, time, and blood sugar levels in a journal - diet: adhere to a low sodium, low sugar, low cholesterol, high fiber diet Please follow up within 1 week with the physicians below: - PCP(Dr Dwyer): to discuss your recent hospitalization. Please bring your blood sugar journal - Rental Manager (Dr Hood): to discuss getting Pulmonary Function Testing - Oncologist/rad ONC: to discuss your cancer and your steroid taper Please seek immediate medical attention if you experience: - severe shortness of breath, dizziness, confusion. - chest pain, palpitations No smoking with your oxygen. you need regular yearly eye exam and foot exam. Referrals: Malcolm Hood MD [Staff Physician] - 1 Week Immanuel Dwyer MD [Primary Care Provider] - Disposition: LONG TERM FACILITY - Home Medications Comprehensive Discharge Medication List: Ambulatory Orders Atorvastatin Ca [Lipitor] 20 mg PO HS 08/17/19 Carvedilol [Coreg -] 3.125 mg PO BID 08/17/19 Omeprazole 40 mg PO DAILY 08/17/19 levETIRAcetam [Keppra -] 500 mg PO BID 08/17/19 Albuterol Sulfate [Proair Hfa] 8.5 gm IH Q4H PRN 08/19/19 Miscellaneous Medical Supply [Glucometer Device] 1 each AD ASDIR #1 kit [employer] [Glucometer Test Strips #100] 1 each AD ASDIR #1 box 08/19/19 metFORMIN XR [Glucophage Xr -] 500 mg PO DAILY@0700 #30 tab.sr.24h 08/19/19 Albuterol 2.5/Ipratropium 0.5 [Duoneb -] 1 amp NEB RQID PRN amp 08/20/19 Budesonide/Formeterol Fumarate [SYMBICORT 160/4.5mcg -] 1 inh PO DAILY #1 cannister 08/20/19 Dexamethasone [Decadron -] 6 mg PO BID tablet 08/20/19 Lancets/Blood Glucose Strips [Fora [id number] [facility]-Lnct] 1 each TID #1 combo..pkg 08/20/19 Oseltamivir Phosphate [Tamiflu -] 75 mg PO BID #6 capsule 08/20/19 This patient is new to me today: No Emergency Visit: No Critical Care patient: No - Discharge Referral Referred to [facility] Med P.C.: No ATTENDING PHYSICIAN STATEMENT I saw and evaluated the patient. I reviewed the resident's note and discussed the case with the resident. I agree with the resident's findings and plan as documented. SUBJECTIVE: OBJECTIVE: ASSESSMENT AND PLAN:
[2019-08-20] MEDS: ATORVASTATIN CA 20 MG TABLET (FP) PO SCH (21:43)
[2019-08-21] MEDS: INSULIN SLIDING SCALE (NOVOLOG) 1 VIAL SQ SCH ×3 (06:52→17:21)
[2019-08-21] MEDS: HEPARIN NA (PORCINE) 5,000 UNITS/ML 1ML VIAL SQ SCH ×3 (06:52→21:25)
[2019-08-21] MEDS: ALBUTEROL SO4 2.5/IPRATROPIUM 0.5 INH SOL 3 ML VIAL.NEB. NEB SCH ×4 (07:32→19:39)
[2019-08-21] MEDS ORDERED: PT OWN MED DRAWER 7, Y5N ONE (09:59)
--- NOTE | 2019-08-21 10:18 | PN ---
Progress Note (short form) - Note Progress Note: Breathing feels overall better. Some dry cough. No CP. No acute events overnight. Intake & Output 08/18/19 08/19/19 08/20/19 08/21/19 23:59 23:59 23:59 23:59 Intake Total 657 301 6062 350 Output Total 800 Balance 600 -320 1520 350 Weight 142 lb Last Vital Signs Temp Pulse Resp BP Pulse Ox 97.5 F L 80 20 129/86 94 L 08/21/19 06:00 08/21/19 06:00 08/21/19 06:00 08/21/19 06:00 08/20/19 21:00 Active Medications Albuterol Sulfate (Ventolin 0.083% Nebulizer Soln -) 1 amp NEB Q4H PRN PRN Reason: SHORT OF BREATH/WHEEZING Albuterol/Ipratropium (Duoneb -) 1 amp NEB RQID [facility] Last Admin: 08/21/19 07:32 Dose: 1 amp Atorvastatin Calcium (Lipitor -) 20 mg PO HS [facility] Last Admin: 08/20/19 21:43 Dose: 20 mg Carvedilol (Coreg -) 3.125 mg PO BID [facility] Last Admin: 08/20/19 21:43 Dose: 3.125 mg Dexamethasone (Decadron -) 4 mg PO BID [facility] Heparin Sodium (Porcine) (Heparin -) 5,000 unit SQ TID [facility] Last Admin: 08/21/19 06:52 Dose: 5,000 unit Insulin Aspart (Novolog Vial Sliding Scale -) 1 vial SQ TIDAC [facility]; Protocol Last Admin: 08/21/19 06:52 Dose: 2 units Levetiracetam (Keppra -) 500 mg PO BID [facility] Last Admin: 08/20/19 21:43 Dose: 500 mg Oseltamivir Phosphate (Tamiflu -) 75 mg PO BID [facility] Stop: 08/23/19 15:59 Last Admin: 08/20/19 21:43 Dose: 75 mg Pantoprazole Sodium (Protonix -) 40 mg PO DAILY [facility] Last Admin: 08/20/19 09:33 Dose: 40 mg Constitutional: Yes: NAD Eyes: Yes: Conjunctiv: Clear, EOM Intact HENT: Yes: Atraumatic, Normocephalic Neck: Yes: Supple, Trachea Midline Cardiovascular: Yes: Regular Rate and Rhythm Respiratory: Yes: Cough, On Nasal O2, Rhonchi. No: Wheezes, Accessory Muscle Use, Rales, Stridor ...Inspection: Yes: WNL ...Clubbing: No Gastrointestinal: Yes: Normal Bowel Sounds, Soft Renal/: Yes: WNL Musculoskeletal: Yes: WNL Extremities: Yes: WNL Edema: No Peripheral Pulses WNL: Yes Integumentary: Yes: WNL Neurological: Yes: WNL, Alert, Oriented ...Motor Strength: WNL Psychiatric: Yes: WNL, Alert, Oriented Labs: Laboratory Results - last 24 hr 08/20/19 08/20/19 08/21/19 11:38 17:27 06:50 POC Glucometer 122 284 190 Problem List - Problems (1) Atelectasis Code(s): J98.11 - ATELECTASIS (2) Lung cancer Code(s): C34.90 - MALIGNANT NEOPLASM OF UNSP PART OF UNSP BRONCHUS OR LUNG (3) COPD exacerbation Code(s): J44.1 - CHRONIC OBSTRUCTIVE PULMONARY DISEASE W (ACUTE) EXACERBATION (4) Subdural hematoma Code(s): S06.5X9A - TRAUM SUBDR HEM W LOC OF UNSP DURATION, INIT Assessment/Plan Noted Decadron BD TX Tamiflu BID Monitor off ABX No smoking counseled PFTs as an outpatient once discharged and stable Check Pre and Post Ambulation O2 saturation is patient going home rather than Rehab Patient to follow up with primary MD for further lung mass workup There is no Pulmonary contraindication for DC Dr Hood Problem List - Problems (1) Atelectasis Code(s): J98.11 - ATELECTASIS (2) Lung cancer Code(s): C34.90 - MALIGNANT NEOPLASM OF UNSP PART OF UNSP BRONCHUS OR LUNG (3) COPD exacerbation Code(s): J44.1 - CHRONIC OBSTRUCTIVE PULMONARY DISEASE W (ACUTE) EXACERBATION (4) Subdural hematoma Code(s): S06.5X9A - TRAUM SUBDR HEM W LOC OF UNSP DURATION, INIT
[2019-08-21] MEDS: CARVEDILOL 3.125 MG TABLET (FP) PO SCH ×2 (10:24→21:25)
[2019-08-21] MEDS: levETIRAcetam 500 MG TABLET (FP) PO SCH ×2 (10:24→21:26)
[2019-08-21] MEDS: DEXAMETHASONE 4 MG TABLET (FP) PO SCH ×2 (10:24→21:25)
[2019-08-21] MEDS: OSELTAMIVIR PHOSPHATE 75 MG CAPSULE PO SCH ×2 (10:24→21:26)
[2019-08-21] MEDS: PANTOPRAZOLE 40 MG TABLET (FP) PO SCH (10:24)
--- NOTE | 2019-08-21 16:28 | PN ---
Physical Exam: SUBJECTIVE: Patient seen and examined NAEON Endorses improvement in breathing. On 3L NC. Still has cough w/ mild white sputum OBJECTIVE: Vital Signs Period Temp Pulse Resp BP Sys/Hummel Pulse Ox Last 24 Hr 97.5 F-98.9 F 79-96 18-20 91-129/56-86 94-94 GENERAL: Awake, alert, and fully oriented. NAD HEAD: Normal with no signs of trauma. EYES: Extraocular movements intact, sclera anicteric, conjunctiva clear. No lid lag. Mild periorbital edema EARS, NOSE, THROAT: Ears normal, nares patent, oropharynx clear without exudates. Moist mucous membranes. NECK: Normal range of motion, supple without lymphadenopathy, JVD, or masses. LUNGS: mild crackles to bases, bilaterally. No wheezes. No accessory muscle use. On NC 3L. Occasional expiratory breaths through pursed lips HEART: Regular rate and rhythm, normal S1 and S2 without murmur, rub or gallop. ABDOMEN: Soft, nontender, not distended, no guarding, no rebound, no masses. Protuberant abdomen. MUSCULOSKELETAL: Normal range of motion at all joints. No bony deformities or tenderness. Thin BUE and BLE UPPER EXTREMITIES: 2+ pulses, warm, well-perfused. No cyanosis. No clubbing. No peripheral edema. LOWER EXTREMITIES: 2+ pulses, warm, well-perfused. No calf tenderness. No peripheral edema. SKIN: Warm, dry, normal turgor. Multiple Nevi of the back. Vikram appearing skin Laboratory Results - last 24 hr 08/20/19 08/21/19 08/21/19 17:27 06:50 12:06 POC Glucometer 284 190 275 Active Medications Generic Name Dose Route Start Last Admin Trade Name Freq PRN Reason Stop Dose Admin Albuterol Sulfate 1 amp 08/17/19 18:03 Ventolin 0.083% Nebulizer Soln - NEB Q4H PRN SHORT OF BREATH/WHEEZING Albuterol/Ipratropium 1 amp 08/17/19 20:00 08/21/19 16:19 Duoneb - NEB 1 amp RQID HARPREET Administration Atorvastatin Calcium 20 mg 08/17/19 22:00 08/20/19 21:43 Lipitor - PO 20 mg HS HARPREET Administration Carvedilol 3.125 mg 08/17/19 22:00 08/21/19 10:24 Coreg - PO 3.125 mg BID HARPREET Administration Dexamethasone 4 mg 08/21/19 10:00 08/21/19 10:24 Decadron - PO 4 mg BID HARPREET Administration Heparin Sodium (Porcine) 5,000 unit 08/18/19 22:00 08/21/19 15:00 Heparin - SQ 5,000 unit TID HARPREET Administration Insulin Aspart 1 vial 08/18/19 16:30 08/21/19 12:10 Novolog Vial Sliding Scale - SQ 6 units TIDAC HARPRE[facility] Administration Protocol Levetiracetam 500 mg 08/17/19 22:00 08/21/19 10:24 Keppra - PO 500 mg BID HARPRE[facility] Administration Oseltamivir Phosphate 75 mg 08/18/19 16:00 08/21/19 10:24 Tamiflu - PO 08/23/19 15:59 75 mg BID HARPREET Administration Pantoprazole Sodium 40 mg 08/18/19 10:00 08/21/19 10:24 Protonix - PO 40 mg DAILY HARPREET Administration ASSESSMENT/PLAN: 74M w/ pmh of Right temporal SDH, dyslipidemia, lung ca(s/p RT [id number]) presents to [facility] with complaint of SOB with productive cough of white sputum. Briefly hypoxic to ~87% while getting ED nebulizer tx. Admitted for COPD excerbation. Pulm consulted which recommended obtaining OSH Lung Ca records, outpatient PFTs, Azithromycin only. OSH from [facility] reviewed. Patient had suspcious lung mass on imaging after fall. BAL and bronchoscopic bx were negative. Mass grew in size and patient was recommended wedge resection which he refused. Underwent RT. Experienced fall in Mar 2019, transferred from [facility] to [facility] for two new frontal and temporal lobe lesions suggestive of lung Ca mets to brain. While hospitalized in [facility], received azithromycin x3d. Labwork showed new- onset diabetes w/ HbA1c 7.9. Metformin to be started as outpatient. Pt was flu positive, started Tamiflu. Weaned solumedrol to dexamethasone(home dose 4mg BID) . RT evaluation determined that pt needed home O2, 3L. Now awaiting STR vs SNF placement # acute COPD excerbation > CXR(08/17/19): atelectasis of RUL > CXR(08/18/19): unchanged - ED: --s/p duoneb x3, solumedrol 125mg -- hypoxia to 87%(undocumented), pulse ox 91% -- Ceftriaxone + Azithromycin x1 - Abx: Azithromycin 250 x3d - Solumedrol 40mg q8H --> dexamethasone 6mg BID --> dexamethasone 4mg BID - duoneb q6h scheduled, ventolin q4h PRN # influenza infection > infuenza B positive - Oseltamivir[TAMIFLU] --day 3, for 5d total # new onset T2DM --likely 2/2 to chronic steroid usage > HbA1c 7.9 - on ISS - will need home metformin, glucometer, fingerstick teaching # hypoxia > ED: pulse ox 91% on RA > VB.44/40.6/57.9/29.1/88.6 - supplemental O2, titrate O2 % >91% - pre- and post- prior to discharge > RT: 87% on RA, 93% on 3L # abnormal EKG > EKG: sinus w/ premature atrial complexes, QTc 457 > troponin 0.03 > BNP 1028 - cw monitoring # LLE weakness --likely chronic; unlikely CVA - PT evaluation: 75ft, rec STR - continue monitoring # 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 No chemical PPX if Neuro w/u is pursued DISPO - needs home O2 - STR vs SNF vs home-VNS Visit type - Emergency Visit Emergency Visit: No - New Patient This patient is new to me today: No - Critical Care Critical Care patient: No ATTENDING PHYSICIAN STATEMENT I saw and evaluated the patient. I reviewed the resident's note and discussed the case with the resident. I agree with the resident's findings and plan as documented. SUBJECTIVE: OBJECTIVE: ASSESSMENT AND PLAN:
--- NOTE | 2019-08-21 18:56 | PN ---
Teaching Attending Note Name of Resident: Karthikeyan Smith ATTENDING PHYSICIAN STATEMENT I saw and evaluated the patient. I reviewed the resident's note and discussed the case with the resident. I agree with the resident's findings and plan as documented. SUBJECTIVE: no pain, no SOB. he feels better OBJECTIVE: AND, awake, alert, cooperative. CV: RRR Lungs: decreased breath sounds , no wheezes . Ext : No edema or erythema Assessment/Plan: 74 y/o man with h/o R lung cancer, s/p radiation,brain Mets, R SDH, to lung field, HLP, who presented with SOB . he was diagnosed with COPD exacerbation 1- Acute COPD exacerbation, Influenza A. - cont decadron 6 mg BID for today then switch to 4 bid tomorrow( his maintenance dsoe ) - cont Nebs. - He needs 3 L of O2 at rest and ambulation . - cont tamiflu to complete 5 days ( last dose 12/30 am dose ) 2- H/o suspected R lung cancer with brain mets , s/p radiation. - follow up with his rad onc and onc as out pt - further taper of his decadron per his treating team - cont Keppra 3- H/o Subdural hematoma. 4- New onset DM. A1c 7.9 - start metformin at dc. cont SSi here - foot and eye exam yearly rehab placement pending. [facility] did not have a bed yesterday, so he did not leave
[2019-08-21] MEDS: ATORVASTATIN CA 20 MG TABLET (FP) PO SCH (21:26)
[2019-08-22] MEDS: HEPARIN NA (PORCINE) 5,000 UNITS/ML 1ML VIAL SQ SCH ×3 (05:57→21:35)
[2019-08-22] MEDS: INSULIN SLIDING SCALE (NOVOLOG) 1 VIAL SQ SCH ×3 (05:59→16:58)
[2019-08-22] MEDS ORDERED: INSULIN (NOVOLOG) ASPART 100 UNITS/ML 10ML VIAL ONE (06:01)
[2019-08-22] MEDS: ALBUTEROL SO4 2.5/IPRATROPIUM 0.5 INH SOL 3 ML VIAL.NEB. NEB SCH ×3 (08:10→15:35)
[2019-08-22] MEDS: OSELTAMIVIR PHOSPHATE 75 MG CAPSULE PO SCH ×2 (10:11→21:35)
[2019-08-22] MEDS: DEXAMETHASONE 4 MG TABLET (FP) PO SCH ×2 (10:12→21:35)
[2019-08-22] MEDS: levETIRAcetam 500 MG TABLET (FP) PO SCH ×2 (10:12→21:35)
[2019-08-22] MEDS: PANTOPRAZOLE 40 MG TABLET (FP) PO SCH (10:12)
[2019-08-22] MEDS: CARVEDILOL 3.125 MG TABLET (FP) PO SCH ×2 (10:13→21:34)
--- NOTE | 2019-08-22 10:26 | PN ---
Progress Note (short form) - Note Progress Note: Breathing feels overall better. Some dry cough. No CP. No acute events overnight. Intake & Output 08/19/19 08/20/19 08/21/19 08/22/19 23:59 23:59 23:59 23:59 Intake Total 480 1520 650 Output Total 800 Balance -320 1520 650 Weight 142 lb Last Vital Signs Temp Pulse Resp BP Pulse Ox 97.5 F L 83 20 172/88 H 94 L 08/22/19 05:46 08/22/19 05:46 08/22/19 05:46 08/22/19 05:46 08/21/19 21:00 Active Medications Albuterol Sulfate (Ventolin 0.083% Nebulizer Soln -) 1 amp NEB Q4H PRN PRN Reason: SHORT OF BREATH/WHEEZING Albuterol/Ipratropium (Duoneb -) 1 amp NEB RQID [facility] Last Admin: 08/22/19 08:10 Dose: 1 amp Atorvastatin Calcium (Lipitor -) 20 mg PO HS [facility] Last Admin: 08/21/19 21:26 Dose: 20 mg Carvedilol (Coreg -) 3.125 mg PO BID [facility] Last Admin: 08/22/19 10:13 Dose: 3.125 mg Dexamethasone (Decadron -) 4 mg PO BID [facility] Last Admin: 08/22/19 10:12 Dose: 4 mg Heparin Sodium (Porcine) (Heparin -) 5,000 unit SQ TID [facility] Last Admin: 08/22/19 05:57 Dose: 5,000 unit Insulin Aspart (Novolog Vial Sliding Scale -) 1 vial SQ TIDAC [facility]; Protocol Last Admin: 08/22/19 05:59 Dose: 2 units Levetiracetam (Keppra -) 500 mg PO BID [facility] Last Admin: 08/22/19 10:12 Dose: 500 mg Oseltamivir Phosphate (Tamiflu -) 75 mg PO BID [facility] Stop: 08/23/19 15:59 Last Admin: 08/22/19 10:11 Dose: 75 mg Pantoprazole Sodium (Protonix -) 40 mg PO DAILY [facility] Last Admin: 08/22/19 10:12 Dose: 40 mg Constitutional: Yes: NAD Eyes: Yes: Conjunctiv: Clear, EOM Intact HENT: Yes: Atraumatic, Normocephalic Neck: Yes: Supple, Trachea Midline Cardiovascular: Yes: Regular Rate and Rhythm Respiratory: Yes: Cough, On Nasal O2, Rhonchi. No: Wheezes, Accessory Muscle Use, Rales, Stridor ...Inspection: Yes: WNL ...Clubbing: No Gastrointestinal: Yes: Normal Bowel Sounds, Soft Renal/: Yes: WNL Musculoskeletal: Yes: WNL Extremities: Yes: WNL Edema: No Peripheral Pulses WNL: Yes Integumentary: Yes: WNL Neurological: Yes: WNL, Alert, Oriented ...Motor Strength: WNL Psychiatric: Yes: WNL, Alert, Oriented Labs: Laboratory Results - last 24 hr 08/21/19 08/21/19 08/22/19 12:06 17:20 05:29 POC Glucometer 275 238 193 Problem List - Problems (1) Atelectasis Code(s): J98.11 - ATELECTASIS (2) Lung cancer Code(s): C34.90 - MALIGNANT NEOPLASM OF UNSP PART OF UNSP BRONCHUS OR LUNG (3) COPD exacerbation Code(s): J44.1 - CHRONIC OBSTRUCTIVE PULMONARY DISEASE W (ACUTE) EXACERBATION (4) Subdural hematoma Code(s): S06.5X9A - TRAUM SUBDR HEM W LOC OF UNSP DURATION, INIT Assessment/Plan BD TX Tamiflu BID Monitor off ABX No smoking counseled PFTs as an outpatient once discharged and stable Patient to follow up with primary MD for further lung mass workup There is no Pulmonary contraindication for DC Dr Hood Problem List - Problems (1) Atelectasis Code(s): J98.11 - ATELECTASIS (2) Lung cancer Code(s): C34.90 - MALIGNANT NEOPLASM OF UNSP PART OF UNSP BRONCHUS OR LUNG (3) COPD exacerbation Code(s): J44.1 - CHRONIC OBSTRUCTIVE PULMONARY DISEASE W (ACUTE) EXACERBATION (4) Subdural hematoma Code(s): S06.5X9A - TRAUM SUBDR HEM W LOC OF UNSP DURATION, INIT
--- NOTE | 2019-08-22 15:39 | PN ---
Progress Note (short form) - Note Progress Note: Subjective: No fever or chills. no OSB . he feels much better Objective: Vital Signs: Last Vital Signs Temp Pulse Resp BP Pulse Ox 98 F 87 18 117/79 98 08/22/19 09:00 08/22/19 09:00 08/22/19 10:00 08/22/19 09:00 08/22/19 10:00 Laboratory Results - last 24 hr 08/21/19 08/22/19 08/22/19 17:20 05:29 11:59 POC Glucometer 238 193 199 Physical Exam: AND, awake, alert, cooperative. CV: RRR Lungs: decreased breath sounds, minimal scattered wheezes . Ext: No edema or erythema. Assessment/Plan: 74 y/o man with h/o R lung cancer, s/p radiation,brain Mets, R SDH, to lung field, HLP, who presented with SOB . he was diagnosed with COPD exacerbation 1- Acute COPD exacerbation, Influenza A. - Home dose of decadron - cont Nebs. - He needs 3 L of O2 at rest and ambulation . - cont tamiflu to complete 5 days ( last dose 12/30 am ) 2- H/o suspected R lung cancer with brain mets , s/p radiation. - follow up with his rad onc and onc as out pt - further taper of his decadron per his treating team - cont Keppra 3- H/o Subdural hematoma. 4- New onset DM. A1c 7.9. - start metformin at dc. cont SSi here - foot and eye exam yearly rehab placement pending. Visit type - Emergency Visit Emergency Visit: Yes ED Registration Date: 08/17/19 Care time: The patient presented to the Emergency Department on the above date and was hospitalized for further evaluation of their emergent condition. - New Patient This patient is new to me today: No - Critical Care Critical Care patient: No
[2019-08-22] MEDS: ATORVASTATIN CA 20 MG TABLET (FP) PO SCH (21:35)
[2019-08-23] MEDS: HEPARIN NA (PORCINE) 5,000 UNITS/ML 1ML VIAL SQ SCH ×3 (05:56→21:37)
[2019-08-23] MEDS: INSULIN SLIDING SCALE (NOVOLOG) 1 VIAL SQ SCH ×3 (05:59→17:11)
[2019-08-23] MEDS ORDERED: PT OWN MED DRAWER 7, Y5N ONE ×2 (09:04→21:23)
[2019-08-23] MEDS: CARVEDILOL 3.125 MG TABLET (FP) PO SCH ×2 (10:00→21:36)
[2019-08-23] MEDS: PANTOPRAZOLE 40 MG TABLET (FP) PO SCH (10:00)
[2019-08-23] MEDS: levETIRAcetam 500 MG TABLET (FP) PO SCH ×2 (10:00→21:36)
[2019-08-23] MEDS: DEXAMETHASONE 4 MG TABLET (FP) PO SCH ×2 (10:00→21:37)
[2019-08-23] MEDS: OSELTAMIVIR PHOSPHATE 75 MG CAPSULE PO SCH (10:01)
--- NOTE | 2019-08-23 11:54 | PN ---
Progress Note (short form) - Note Progress Note: PULMONARY Breathing better. Less cough and wheezing. No fevers. Vital Signs Period Temp Pulse Resp BP Sys/Hummel Pulse Ox Last 24 Hr 97.4 F-97.8 F 90-94 19-22 120-135/68-80 90-98 Gen: NAD at rest Heart: RRR Lung: scattered rhonchi Abd: soft, nontender Ext: no edema CBC, BMP 08/20/19 07:15 08/20/19 07:15 Active Medications Atorvastatin Calcium (Lipitor -) 20 mg PO HS [facility] Last Admin: 08/22/19 21:35 Dose: 20 mg Carvedilol (Coreg -) 3.125 mg PO BID [facility] Last Admin: 08/23/19 10:00 Dose: 3.125 mg Dexamethasone (Decadron -) 4 mg PO BID [facility] Last Admin: 08/23/19 10:00 Dose: 4 mg Heparin Sodium (Porcine) (Heparin -) 5,000 unit SQ TID [facility] Last Admin: 08/23/19 05:56 Dose: 5,000 unit Insulin Aspart (Novolog Vial Sliding Scale -) 1 vial SQ TIDAC [facility]; Protocol Last Admin: 08/23/19 11:49 Dose: 4 units Levetiracetam (Keppra -) 500 mg PO BID [facility] Last Admin: 08/23/19 10:00 Dose: 500 mg Oseltamivir Phosphate (Tamiflu -) 75 mg PO BID [facility] Stop: 08/23/19 15:59 Last Admin: 08/23/19 10:01 Dose: 75 mg Pantoprazole Sodium (Protonix -) 40 mg PO DAILY [facility] Last Admin: 08/23/19 10:00 Dose: 40 mg A/P Influenza B Acute COPD Exacerbation h/o Lung Ca with brain mets s/p RT h/o Subdural Hematoma Hyperlipidemia - complete tamiflu - continue decadron - inhaled bronchodilators - O2 to keep SpO2 >90% - DVT prophylaxis
[2019-08-23] MEDS ORDERED: ALBUTEROL SO4 0.083% IH SOL 2.5 MG/3 ML VIAL.NEB. NEB PRN (11:55)
[2019-08-23] MEDS: ALBUTEROL SO4 2.5/IPRATROPIUM 0.5 INH SOL 3 ML VIAL.NEB. NEB SCH ×2 (14:20→20:35)
--- NOTE | 2019-08-23 15:45 | PN ---
Physical Exam: SUBJECTIVE: Patient seen and examined NAEON Endorses improvement in breathing and fatigue. OBJECTIVE: Vital Signs Period Temp Pulse Resp BP Sys/Hummel Pulse Ox Last 24 Hr 97.3 F-97.8 F 84-94 19-22 120-137/68-83 90-98 GENERAL: Awake, alert, and fully oriented. NAD HEAD: Normal with no signs of trauma. EYES: Extraocular movements intact, sclera anicteric, conjunctiva clear. No lid lag. Mild periorbital edema EARS, NOSE, THROAT: Ears normal, nares patent, oropharynx clear without exudates. Moist mucous membranes. NECK: Normal range of motion, supple without lymphadenopathy, JVD, or masses. LUNGS: mild crackles to bases, bilaterally. No wheezes. No accessory muscle use. On RA. Occasional expiratory breaths through pursed lips HEART: Regular rate and rhythm, normal S1 and S2 without murmur, rub or gallop. ABDOMEN: Soft, nontender, not distended, no guarding, no rebound, no masses. Protuberant abdomen. MUSCULOSKELETAL: Normal range of motion at all joints. No bony deformities or tenderness. Thin BUE and BLE UPPER EXTREMITIES: 2+ pulses, warm, well-perfused. No cyanosis. No clubbing. No peripheral edema. LOWER EXTREMITIES: 2+ pulses, warm, well-perfused. No calf tenderness. No peripheral edema. SKIN: Warm, dry, normal turgor. Multiple Nevi of the back. Vikram appearing skin Laboratory Results - last 24 hr 08/22/19 08/23/19 08/23/19 16:56 05:37 11:42 POC Glucometer 424 199 236 Active Medications Generic Name Dose Route Start Last Admin Trade Name Freq PRN Reason Stop Dose Admin Albuterol Sulfate 1 amp 08/23/19 11:55 Ventolin 0.083% Nebulizer Soln - NEB Q4H PRN SHORT OF BREATH/WHEEZING Albuterol/Ipratropium 1 amp 08/23/19 14:00 Duoneb - NEB RTID HARPREET Atorvastatin Calcium 20 mg 08/17/19 22:00 08/22/19 21:35 Lipitor - PO 20 mg HS HARPREET Administration Carvedilol 3.125 mg 08/17/19 22:00 08/23/19 10:00 Coreg - PO 3.125 mg BID HARPREET Administration Dexamethasone 4 mg 08/21/19 10:00 08/23/19 10:00 Decadron - PO 4 mg BID [facility]PREET Administration Heparin Sodium (Porcine) 5,000 unit 08/18/19 22:00 08/23/19 13:50 Heparin - SQ 5,000 unit TID HARPREET Administration Insulin Aspart 1 vial 08/18/19 16:30 08/23/19 11:49 Novolog Vial Sliding Scale - SQ 4 units TIDAC [facility]PRE[facility] Administration Protocol Levetiracetam 500 mg 08/17/19 22:00 08/23/19 10:00 Keppra - PO 500 mg BID HARPREET Administration Metformin HCl 1,000 mg 08/23/19 14:30 08/23/19 15:09 Glucophage Xr - PO 1,000 mg DAILY@0700 [facility]ET Administration Oseltamivir Phosphate 75 mg 08/18/19 16:00 08/23/19 10:01 Tamiflu - PO 08/23/19 15:59 75 mg BID [facility]ET Administration Pantoprazole Sodium 40 mg 08/18/19 10:00 08/23/19 10:00 Protonix - PO 40 mg DAILY [facility] Administration ASSESSMENT/PLAN: 74M w/ pmh of Right temporal SDH, dyslipidemia, lung ca(s/p RT [id number]) presents to [facility] with complaint of SOB with productive cough of white sputum. Briefly hypoxic to ~87% while getting ED nebulizer tx. Admitted for COPD excerbation. Pulm consulted which recommended obtaining OSH Lung Ca records, outpatient PFTs, Azithromycin only. OSH from [facility] reviewed. Patient had suspcious lung mass on imaging after fall. BAL and bronchoscopic bx were negative. Mass grew in size and patient was recommended wedge resection which he refused. Underwent RT. Experienced fall in Mar 2019, transferred from [facility] to [facility] for two new frontal and temporal lobe lesions suggestive of lung Ca mets to brain. While hospitalized in [facility], received azithromycin x3d. Labwork showed new- onset diabetes w/ HbA1c 7.9. Metformin to be started as outpatient. Pt was flu positive, started Tamiflu. Weaned solumedrol to dexamethasone(home dose 4mg BID) . RT evaluation determined that pt needed home O2, 3L. Now awaiting STR vs SNF placement # acute COPD excerbation > CXR(08/17/19): atelectasis of RUL > CXR(08/18/19): unchanged - ED: --s/p duoneb x3, solumedrol 125mg -- hypoxia to 87%(undocumented), pulse ox 91% -- Ceftriaxone + Azithromycin x1 - Abx: Azithromycin 250 x3d - Solumedrol 40mg q8H --> dexamethasone 6mg BID --> dexamethasone 4mg BID - duoneb q6h scheduled, ventolin q4h PRN # influenza infection > infuenza B positive - Oseltamivir[TAMIFLU] --day 5, for 5d total --COMPLETED # new onset T2DM --likely 2/2 to chronic steroid usage > HbA1c 7.9 - on ISS - will need home metformin, glucometer, fingerstick teaching - starting Metformin XL 1000 QD # hypoxia > ED: pulse ox 91% on RA > VB.44/40.6/57.9/29.1/88.6 - supplemental O2, titrate O2 % >91% - pre- and post- prior to discharge > RT: 87% on RA, 93% on 3L # abnormal EKG > EKG: sinus w/ premature atrial complexes, QTc 457 > troponin 0.03 > BNP 1028 - cw monitoring # LLE weakness --likely chronic; unlikely CVA - PT evaluation: 75ft, rec STR - continue monitoring # chronic steroid usage indicated for brain lesions --pt appears Cushingoid - Solumedrol 40mg q8H --> dexamethasone 6mg BID --> dexamethasone 4mg BID - med rec: dexamethasone 4mg BID(Dr Dwyer) FEN - diabetic diet PPX - SCDs - SQH DISPO - needs home O2 - STR vs SNF vs home-VNS Visit type - Emergency Visit Emergency Visit: No - New Patient This patient is new to me today: No - Critical Care Critical Care patient: No ATTENDING PHYSICIAN STATEMENT I saw and evaluated the patient. I reviewed the resident's note and discussed the case with the resident. I agree with the resident's findings and plan as documented. SUBJECTIVE: OBJECTIVE: ASSESSMENT AND PLAN:
--- NOTE | 2019-08-23 16:07 | PN ---
Teaching Attending Note Name of Resident: Bertrand Pereira ATTENDING PHYSICIAN STATEMENT I saw and evaluated the patient. I reviewed the resident's note and discussed the case with the resident. I agree with the resident's findings and plan as documented. SUBJECTIVE: No fever or chills. No MACEDO , no SOB. feels well OBJECTIVE: AND, awake, alert, cooperative. CV: RRR Lungs: decreased breath sounds, minimal scattered wheezes. Ext: No edema or erythema. Assessment/Plan: 74 y/o man with h/o R lung cancer, s/p radiation,brain Mets, R SDH, to lung field, HLP, who presented with SOB . he was diagnosed with COPD exacerbation 1- Acute COPD exacerbation, Influenza A. - Home dose of Decadron - cont Nebs. - He needs 3 L of O2 at rest and ambulation . - last dose of tamiflu this am. 2- H/o suspected R lung cancer with brain mets , s/p radiation. - follow up with his rad onc and onc as out pt - further taper of his decadron per his treating team - cont Keppra 3- H/o Subdural hematoma. 4- New onset DM. A1c 7.9. - start metformin. will cont at dc - foot and eye exam yearly Rehab placement pending.
[2019-08-23] MEDS: ATORVASTATIN CA 20 MG TABLET (FP) PO SCH (21:36)
[2019-08-24] MEDS ORDERED: INSULIN (NOVOLOG) ASPART 100 UNITS/ML 10ML VIAL ONE (06:11)
[2019-08-24] MEDS: INSULIN SLIDING SCALE (NOVOLOG) 1 VIAL SQ SCH ×3 (06:19→16:23)
[2019-08-24] MEDS: HEPARIN NA (PORCINE) 5,000 UNITS/ML 1ML VIAL SQ SCH ×3 (06:21→21:50)
[2019-08-24] MEDS: ALBUTEROL SO4 2.5/IPRATROPIUM 0.5 INH SOL 3 ML VIAL.NEB. NEB SCH ×3 (07:25→20:10)
[2019-08-24] MEDS: PANTOPRAZOLE 40 MG TABLET (FP) PO SCH (09:33)
[2019-08-24] MEDS: DEXAMETHASONE 4 MG TABLET (FP) PO SCH ×2 (09:33→22:28)
[2019-08-24] MEDS: CARVEDILOL 3.125 MG TABLET (FP) PO SCH ×2 (09:33→21:50)
[2019-08-24] MEDS: levETIRAcetam 500 MG TABLET (FP) PO SCH ×2 (09:33→21:50)
--- NOTE | 2019-08-24 11:45 | PN ---
Progress Note (short form) - Note Progress Note: PULMONARY Denies shortness of breath. Less cough and wheezing. No fevers. Vital Signs Period Temp Pulse Resp BP Sys/Hummel Pulse Ox Last 24 Hr 97.3 F-98.1 F 83-90 20-20 118-137/62-90 90-96 Gen: NAD at rest Heart: RRR Lung: decreased breath sounds at the bases Abd: soft, nontender Ext: no edema CBC, BMP 08/20/19 07:15 08/20/19 07:15 Active Medications Albuterol Sulfate (Ventolin 0.083% Nebulizer Soln -) 1 amp NEB Q4H PRN PRN Reason: SHORT OF BREATH/WHEEZING Albuterol/Ipratropium (Duoneb -) 1 amp NEB RTID [facility] Last Admin: 08/24/19 07:25 Dose: 1 amp Atorvastatin Calcium (Lipitor -) 20 mg PO HS [facility] Last Admin: 08/23/19 21:36 Dose: 20 mg Carvedilol (Coreg -) 3.125 mg PO BID [facility] Last Admin: 08/24/19 09:33 Dose: 3.125 mg Dexamethasone (Decadron -) 4 mg PO BID [facility] Last Admin: 08/24/19 09:33 Dose: 4 mg Heparin Sodium (Porcine) (Heparin -) 5,000 unit SQ TID [facility] Last Admin: 08/24/19 06:21 Dose: 5,000 unit Insulin Aspart (Novolog Vial Sliding Scale -) 1 vial SQ TIDAC [facility]; Protocol Last Admin: 08/24/19 11:16 Dose: 2 units Levetiracetam (Keppra -) 500 mg PO BID [facility] Last Admin: 08/24/19 09:33 Dose: 500 mg Metformin HCl (Glucophage Xr -) 1,000 mg PO DAILY@0700 [facility] Last Admin: 08/24/19 06:19 Dose: 1,000 mg Pantoprazole Sodium (Protonix -) 40 mg PO DAILY [facility] Last Admin: 08/24/19 09:33 Dose: 40 mg A/P Influenza B Acute COPD Exacerbation h/o Lung Ca with brain mets s/p RT h/o Subdural Hematoma Hyperlipidemia - completed tamiflu - continue decadron - inhaled bronchodilators - O2 to keep SpO2 >90% - DVT prophylaxis
[2019-08-24] MEDS: ACETAMINOPHEN 325 MG TABLET (FP) PO PRN (16:23)
--- NOTE | 2019-08-24 17:26 | PN ---
Teaching Attending Note Name of Resident: Karthikeyan Smith ATTENDING PHYSICIAN STATEMENT I saw and evaluated the patient. I reviewed the resident's note and discussed the case with the resident. I agree with the resident's findings and plan as documented. SUBJECTIVE: AND, awake, alert, cooperative. CV: RRR Lungs: decreased breath sounds, minimal scattered wheezes. Ext: No edema or erythema. Assessment/Plan: 74 y/o man with h/o R lung cancer, s/p radiation,brain Mets, R SDH, to lung field, HLP, who presented with SOB . he was diagnosed with COPD exacerbation 1- Acute COPD exacerbation, Influenza A. - Home dose of Decadron - cont Nebs. - He needs 3 L of O2 at rest and ambulation. - finished a course of tamiflu 2- H/o R lung cancer ( not proven by Bx ) with brain mets, s/p radiation. - follow up with his Rad onc and onc as out pt - further taper of his decadron per his treating team - cont Keppra 3- H/o Subdural hematoma. 4- New onset DM. A1c 7.9. - metformin started yesterday. will cont at dc - foot and eye exam yearly - cont SSI Rehab placement pending.
--- NOTE | 2019-08-24 18:29 | PN ---
Physical Exam: SUBJECTIVE: Patient seen and examined NAEON. Improvement in energy. Improvement in cough OBJECTIVE: Vital Signs Period Temp Pulse Resp BP Sys/Hummel Pulse Ox Last 24 Hr 97.8 F-98.1 F 83-90 20-20 118-129/62-90 90-96 GENERAL: Awake, alert, and fully oriented. NAD HEAD: Normal with no signs of trauma. EYES: Extraocular movements intact, sclera anicteric, conjunctiva clear. No lid lag. Mild periorbital edema EARS, NOSE, THROAT: Ears normal, nares patent, oropharynx clear without exudates. Moist mucous membranes. NECK: Normal range of motion, supple without lymphadenopathy, JVD, or masses. LUNGS: mild crackles to bases, bilaterally. No wheezes. No accessory muscle use. NC 2L. Occasional expiratory breaths through pursed lips HEART: Regular rate and rhythm, normal S1 and S2 without murmur, rub or gallop. ABDOMEN: Soft, nontender, not distended, no guarding, no rebound, no masses. Protuberant abdomen. MUSCULOSKELETAL: Normal range of motion at all joints. No bony deformities or tenderness. Thin BUE and BLE UPPER EXTREMITIES: 2+ pulses, warm, well-perfused. No cyanosis. No clubbing. No peripheral edema. LOWER EXTREMITIES: 2+ pulses, warm, well-perfused. No calf tenderness. No peripheral edema. SKIN: Warm, dry, normal turgor. Multiple Nevi of the back. Vikram appearing skin Laboratory Results - last 24 hr 08/23/19 08/24/19 08/24/19 22:56 06:17 11:08 POC Glucometer 212 193 183 08/24/19 16:21 POC Glucometer 171 Active Medications Generic Name Dose Route Start Last Admin Trade Name Freq PRN Reason Stop Dose Admin Acetaminophen 650 mg 08/24/19 15:59 08/24/19 16:23 Tylenol - PO 650 mg Q6H PRN Administration PAIN LEVEL 6-10 Albuterol Sulfate 1 amp 08/23/19 11:55 Ventolin 0.083% Nebulizer Soln - NEB Q4H PRN SHORT OF BREATH/WHEEZING Albuterol/Ipratropium 1 amp 08/23/19 14:00 08/24/19 15:19 Duoneb - NEB 1 amp RTID HARPREET Administration Atorvastatin Calcium 20 mg 08/17/19 22:00 08/23/19 21:36 Lipitor - PO 20 mg HS HARPREET Administration Carvedilol 3.125 mg 08/17/19 22:00 08/24/19 09:33 Coreg - PO 3.125 mg BID HARPREET Administration Dexamethasone 4 mg 08/21/19 10:00 08/24/19 09:33 Decadron - PO 4 mg BID HARPREET Administration Heparin Sodium (Porcine) 5,000 unit 08/18/19 22:00 08/24/19 13:49 Heparin - SQ 5,000 unit TID HARPREET Administration Insulin Aspart 1 vial 08/18/19 16:30 08/24/19 16:23 Novolog Vial Sliding Scale - SQ 2 units TIDAC HARPREET Administration Protocol Levetiracetam 500 mg 08/17/19 22:00 08/24/19 09:33 Keppra - PO 500 mg BID HARPREET Administration Metformin HCl 1,000 mg 08/23/19 14:30 08/24/19 06:19 Glucophage Xr - PO 1,000 mg DAILY@0700 HARPREET Administration Pantoprazole Sodium 40 mg 08/18/19 10:00 08/24/19 09:33 Protonix - PO 40 mg DAILY HARPREET Administration ASSESSMENT/PLAN: 74M w/ pmh of Right temporal SDH, dyslipidemia, lung ca(s/p RT [id number]) presents to [facility] with complaint of SOB with productive cough of white sputum. Briefly hypoxic to ~87% while getting ED nebulizer tx. Admitted for COPD excerbation. Pulm consulted which recommended obtaining OSH Lung Ca records, outpatient PFTs, Azithromycin only. OSH from [facility] reviewed. Patient had suspcious lung mass on imaging after fall. BAL and bronchoscopic bx were negative. Mass grew in size and patient was recommended wedge resection which he refused. Underwent RT. Experienced fall in Mar 2019, transferred from [facility] to [facility] for two new frontal and temporal lobe lesions suggestive of lung Ca mets to brain. While hospitalized in [facility], received azithromycin x3d. Labwork showed new- onset diabetes w/ HbA1c 7.9. Metformin to be started as outpatient. Pt was flu positive, started Tamiflu. Weaned solumedrol to dexamethasone(home dose 4mg BID) . RT evaluation determined that pt needed home O2, 3L. Now awaiting STR vs SNF placement # acute COPD excerbation > CXR(08/17/19): atelectasis of RUL > CXR(08/18/19): unchanged - ED: --s/p duoneb x3, solumedrol 125mg -- hypoxia to 87%(undocumented), pulse ox 91% -- Ceftriaxone + Azithromycin x1 - Abx: Azithromycin 250 x3d - Solumedrol 40mg q8H --> dexamethasone 6mg BID --> dexamethasone 4mg BID - duoneb q6h scheduled, ventolin q4h PRN # influenza infection > infuenza B positive - Oseltamivir[TAMIFLU] --day 5, for 5d total --COMPLETED # new onset T2DM --likely 2/2 to chronic steroid usage > HbA1c 7.9 - on ISS - will need home metformin, glucometer, fingerstick teaching - starting Metformin XL 1000 QD # hypoxia > ED: pulse ox 91% on RA > VB.44/40.6/57.9/29.1/88.6 - supplemental O2, titrate O2 % >91% - pre- and post- prior to discharge > RT: 87% on RA, 93% on 3L # abnormal EKG > EKG: sinus w/ premature atrial complexes, QTc 457 > troponin 0.03 > BNP 1028 - cw monitoring # LLE weakness --likely chronic; unlikely CVA - PT evaluation: 75ft, rec STR - continue monitoring # chronic steroid usage indicated for brain lesions --pt appears Cushingoid - Solumedrol 40mg q8H --> dexamethasone 6mg BID --> dexamethasone 4mg BID - med rec: dexamethasone 4mg BID(Dr Dwyer) FEN - diabetic diet PPX - SCDs - [facility] DISPO - needs home O2 - STR vs SNF vs home-VNS Visit type - Emergency Visit Emergency Visit: No - New Patient This patient is new to me today: No - Critical Care Critical Care patient: No ATTENDING PHYSICIAN STATEMENT I saw and evaluated the patient. I reviewed the resident's note and discussed the case with the resident. I agree with the resident's findings and plan as documented. SUBJECTIVE: OBJECTIVE: ASSESSMENT AND PLAN:
[2019-08-24] MEDS ORDERED: PT OWN MED DRAWER 7, Y5N ONE (21:25)
[2019-08-24] MEDS: ATORVASTATIN CA 20 MG TABLET (FP) PO SCH (21:50)
[2019-08-25] MEDS: HEPARIN NA (PORCINE) 5,000 UNITS/ML 1ML VIAL SQ SCH ×3 (06:44→22:31)
[2019-08-25] MEDS: INSULIN SLIDING SCALE (NOVOLOG) 1 VIAL SQ SCH ×3 (06:44→16:50)
[2019-08-25] MEDS: ALBUTEROL SO4 2.5/IPRATROPIUM 0.5 INH SOL 3 ML VIAL.NEB. NEB SCH ×3 (07:36→20:42)
--- NOTE | 2019-08-25 09:00 | PN ---
Teaching Attending Note Name of Resident: Karthikeyan Smith ATTENDING PHYSICIAN STATEMENT I saw and evaluated the patient. I reviewed the resident's note and discussed the case with the resident. I agree with the resident's findings and plan as documented. SUBJECTIVE: Patient is comfortable with no acute distress, no nausea or vomiting, no fever or chills. OBJECTIVE: Vital Signs Temperature 98.4 F 08/25/19 05:49 Pulse Rate 86 08/25/19 05:49 Respiratory Rate 20 08/25/19 05:49 Blood Pressure 120/82 08/25/19 05:49 O2 Sat by Pulse Oximetry (%) 96 08/24/19 22:00 GENERAL: The patient is awake, alert, and fully oriented, in no acute distress. HEAD: Normal with no signs of trauma. EYES: PERRL, extraocular movements intact, sclera anicteric, conjunctiva clear. ENT: Ears normal, oropharynx clear without exudates, moist mucous membranes. NECK: Trachea midline, full range of motion, supple. LUNGS: Breath sounds equal, clear to auscultation bilaterally, no wheezes, no crackles, no accessory muscle use. HEART: Regular rate and rhythm, S1, S2 without murmur, rub or gallop. ABDOMEN: Soft, NT,ND, normoactive bowel sounds, no guarding, no rebound, no hepatosplenomegaly, no masses. EXTREMITIES: 2+ pulses, warm, well-perfused, no edema. NEUROLOGICAL: Cranial nerves II through XII grossly intact. Normal speech, gait not observed. PSYCH: Normal mood, normal affect. SKIN: Warm, dry, normal turgor, no rashes or lesions noted CBCD WBC 8.6 K/mm3 (4.0-10.0) 08/20/19 07:15 RBC 4.13 M/mm3 (4.00-5.60) 08/20/19 07:15 Hgb 13.1 GM/dL (11.7-16.9) 08/20/19 07:15 Hct 39.4 % (35.4-49) 08/20/19 07:15 MCV 95.5 fl (80-96) 08/20/19 07:15 MCHC 33.2 g/dl (32.0-35.9) 08/20/19 07:15 RDW 14.7 % (11.9-15.9) 08/20/19 07:15 Plt Count 124 K/MM3 (134-434) L 08/20/19 07:15 MPV 8.4 fl (7.5-11.1) 08/20/19 07:15 CMP Sodium 142 mmol/L (136-145) 08/20/19 07:15 Potassium 4.0 mmol/L (3.5-5.1) 08/20/19 07:15 Chloride 108 mmol/L (98-107) H 08/20/19 07:15 Carbon Dioxide 28 mmol/L (21-32) 08/20/19 07:15 Anion Gap 6 MMOL/L (8-16) L 08/20/19 07:15 BUN 22.7 mg/dL (7-18) H 08/20/19 07:15 Creatinine 0.6 mg/dL (0.55-1.3) 08/20/19 07:15 Random Glucose 154 mg/dL (74-106) H 08/20/19 07:15 Calcium 8.6 mg/dL (8.5-10.1) 08/20/19 07:15 Total Bilirubin 0.8 mg/dL (0.2-1) 08/17/19 14:52 AST 32 U/L (15-37) 08/17/19 14:52 ALT 45 U/L (13-61) 08/17/19 14:52 Alkaline Phosphatase 101 U/L (45-117) 08/17/19 14:52 Total Protein 5.9 g/dl (6.4-8.2) L 08/17/19 14:52 Albumin 2.7 g/dl (3.4-5.0) L 08/17/19 14:52 CARDIAC ENZYMES Troponin I 0.03 ng/ml (0.00-0.05) 08/17/19 14:52 Current Medications Generic Name Dose Route Start Last Admin Trade Name Freq PRN Reason Stop Dose Admin Acetaminophen 650 mg 08/24/19 15:59 08/24/19 16:23 Tylenol - PO 650 mg Q6H PRN Administration PAIN LEVEL 6-10 Albuterol Sulfate 1 amp 08/23/19 11:55 Ventolin 0.083% Nebulizer Soln - NEB Q4H PRN SHORT OF BREATH/WHEEZING Albuterol/Ipratropium 1 amp 08/23/19 14:00 08/25/19 07:36 Duoneb - NEB 1 amp RTID HARPREET Administration Atorvastatin Calcium 20 mg 08/17/19 22:00 08/24/19 21:50 Lipitor - PO 20 mg HS HARPREET Administration Carvedilol 3.125 mg 08/17/19 22:00 08/24/19 21:50 Coreg - PO 3.125 mg BID HARPREET Administration Dexamethasone 4 mg 08/21/19 10:00 08/24/19 22:28 Decadron - PO 4 mg BID HARPREET Administration Heparin Sodium (Porcine) 5,000 unit 08/18/19 22:00 08/25/19 06:44 Heparin - SQ 5,000 unit TID HARPREET Administration Insulin Aspart 1 vial 08/18/19 16:30 08/25/19 06:44 Novolog Vial Sliding Scale - SQ 2 units TIDAC HARPREET Administration Protocol Levetiracetam 500 mg 08/17/19 22:00 08/24/19 21:50 Keppra - PO 500 mg BID HARPREET Administration Metformin HCl 1,000 mg 08/23/19 14:30 08/25/19 06:44 Glucophage Xr - PO 1,000 mg DAILY@0700 HARPREET Administration Pantoprazole Sodium 40 mg 08/18/19 10:00 08/24/19 09:33 Protonix - PO 40 mg DAILY HARPREET Administration Home Medications Medication Instructions Recorded Atorvastatin Ca [Lipitor] 20 mg PO HS 08/17/19 Carvedilol [Coreg -] 3.125 mg PO BID 08/17/19 Omeprazole 40 mg PO DAILY 08/17/19 levETIRAcetam [Keppra -] 500 mg PO BID 08/17/19 Albuterol Sulfate [Proair Hfa] 8.5 gm IH Q4H PRN 08/19/19 Miscellaneous Medical Supply 1 each AD ASDIR #1 kit 08/19/19 [Glucometer Device] Miscellaneous Medical Supply 1 each AD ASDIR #1 box 08/19/19 [Glucometer Test Strips #100] Albuterol 2.5/Ipratropium 0.5 1 amp NEB RQID PRN amp 08/20/19 [Duoneb -] Budesonide/Formeterol Fumarate 1 inh PO DAILY #1 cannister 08/20/19 [SYMBICORT 160/4.5mcg -] Lancets/Blood Glucose Strips [Fora 1 each TID #1 combo..pkg 08/20/19 [id number] Strp-Lnct] Dexamethasone [Decadron -] 4 mg PO BID tablet 08/21/19 metFORMIN XR [Glucophage Xr -] 1,000 mg PO DAILY@0700 tab.sr.24h 08/23/19 ASSESSMENT AND PLAN: Patient is a 74yom with Pmhx of R lung cancer, s/p radiation,brain Mets, R SDH , to lung field, HLP, who presented with SOB . he was diagnosed with COPD exacerbation # Acute COPD exacerbation, Influenza A. continue Home dose of Decadron, cont Nebs., on 3 L of O2 at rest and ambulation. - finished a course of tamiflu in the hospital #H/o of R lung cancer ( not proven by Bx ) with brain mets, s/p radiation. f/u with his Rad onc and onc as out pt - further taper of his decadron per his treating team , cont Keppra for px for sz. # H/o Subdural hematoma. # New onset DM. A1c 7.9, on metformin continue, foot and eye exam yearly, cont SSI Rehab placement pending.
[2019-08-25] MEDS: levETIRAcetam 500 MG TABLET (FP) PO SCH ×2 (10:20→22:30)
[2019-08-25] MEDS: DEXAMETHASONE 4 MG TABLET (FP) PO SCH ×2 (10:20→22:30)
[2019-08-25] MEDS: PANTOPRAZOLE 40 MG TABLET (FP) PO SCH (10:20)
[2019-08-25] MEDS: CARVEDILOL 3.125 MG TABLET (FP) PO SCH ×2 (10:20→22:30)
--- NOTE | 2019-08-25 11:06 | PN ---
Progress Note (short form) - Note Progress Note: PULMONARY Denies shortness of breath. Less cough and wheezing. No fevers. Vital Signs Period Temp Pulse Resp BP Sys/Hummel Pulse Ox Last 24 Hr 97.7 F-98.4 F 86-94 20-20 104-122/64-82 93-96 Gen: NAD at rest Heart: RRR Lung: scattered wheezes Abd: soft, nontender Ext: no edema CBC, BMP 08/20/19 07:15 08/20/19 07:15 Active Medications Acetaminophen (Tylenol -) 650 mg PO Q6H PRN PRN Reason: PAIN LEVEL 6-10 Last Admin: 08/24/19 16:23 Dose: 650 mg Albuterol Sulfate (Ventolin 0.083% Nebulizer Soln -) 1 amp NEB Q4H PRN PRN Reason: SHORT OF BREATH/WHEEZING Albuterol/Ipratropium (Duoneb -) 1 amp NEB RTID [facility] Last Admin: 08/25/19 07:36 Dose: 1 amp Atorvastatin Calcium (Lipitor -) 20 mg PO HS [facility] Last Admin: 08/24/19 21:50 Dose: 20 mg Carvedilol (Coreg -) 3.125 mg PO BID [facility] Last Admin: 08/25/19 10:20 Dose: 3.125 mg Dexamethasone (Decadron -) 4 mg PO BID [facility] Last Admin: 08/25/19 10:20 Dose: 4 mg Heparin Sodium (Porcine) (Heparin -) 5,000 unit SQ TID [facility] Last Admin: 08/25/19 06:44 Dose: 5,000 unit Insulin Aspart (Novolog Vial Sliding Scale -) 1 vial SQ TIDAC [facility]; Protocol Last Admin: 08/25/19 06:44 Dose: 2 units Levetiracetam (Keppra -) 500 mg PO BID [facility] Last Admin: 08/25/19 10:20 Dose: 500 mg Metformin HCl (Glucophage Xr -) 1,000 mg PO DAILY@0700 [facility] Last Admin: 08/25/19 06:44 Dose: 1,000 mg Pantoprazole Sodium (Protonix -) 40 mg PO DAILY [facility] Last Admin: 08/25/19 10:20 Dose: 40 mg A/P Influenza B Acute COPD Exacerbation h/o Lung Ca with brain mets s/p RT h/o Subdural Hematoma Hyperlipidemia - completed tamiflu - continue home dose decadron - inhaled bronchodilators - O2 to keep SpO2 >90% - DVT prophylaxis
[2019-08-25] MEDS: ACETAMINOPHEN 325 MG TABLET (FP) PO PRN (13:48)
--- NOTE | 2019-08-25 16:43 | PN ---
Physical Exam: SUBJECTIVE: Patient seen and examined NAEON Improved SOB, mild cough with white sputum OBJECTIVE: Vital Signs Period Temp Pulse Resp BP Sys/Hummel Pulse Ox Last 24 Hr 97.7 F-98.4 F 86-94 20-20 104-122/64-82 93-96 GENERAL: Awake, alert, and fully oriented. NAD HEAD: Normal with no signs of trauma. EYES: Extraocular movements intact, sclera anicteric, conjunctiva clear. No lid lag. Mild periorbital edema EARS, NOSE, THROAT: Ears normal, nares patent, oropharynx clear without exudates. Moist mucous membranes. NECK: Normal range of motion, supple without lymphadenopathy, JVD, or masses. LUNGS: mild crackles to bases, bilaterally. No wheezes. No accessory muscle use. NC 2L. Occasional expiratory breaths through pursed lips HEART: Regular rate and rhythm, normal S1 and S2 without murmur, rub or gallop. ABDOMEN: Soft, nontender, not distended, no guarding, no rebound, no masses. Protuberant abdomen. MUSCULOSKELETAL: Normal range of motion at all joints. No bony deformities or tenderness. Thin BUE and BLE UPPER EXTREMITIES: 2+ pulses, warm, well-perfused. No cyanosis. No clubbing. No peripheral edema. LOWER EXTREMITIES: 2+ pulses, warm, well-perfused. No calf tenderness. No peripheral edema. SKIN: Warm, dry, normal turgor. Multiple Nevi of the back. Vikram appearing skin Laboratory Results - last 24 hr 08/25/19 08/25/19 08/25/19 06:30 11:21 16:20 POC Glucometer 192 181 192 Active Medications Generic Name Dose Route Start Last Admin Trade Name Freq PRN Reason Stop Dose Admin Acetaminophen 650 mg 08/24/19 15:59 08/25/19 13:48 Tylenol - PO 650 mg Q6H PRN Administration PAIN LEVEL 6-10 Albuterol Sulfate 1 amp 08/23/19 11:55 Ventolin 0.083% Nebulizer Soln - NEB Q4H PRN SHORT OF BREATH/WHEEZING Albuterol/Ipratropium 1 amp 08/23/19 14:00 08/25/19 13:10 Duoneb - NEB 1 amp RTID HARPREET Administration Atorvastatin Calcium 20 mg 08/17/19 22:00 08/24/19 21:50 Lipitor - PO 20 mg HS HARPREET Administration Carvedilol 3.125 mg 08/17/19 22:00 08/25/19 10:20 Coreg - PO 3.125 mg BID HARPREET Administration Dexamethasone 4 mg 08/21/19 10:00 08/25/19 10:20 Decadron - PO 4 mg BID HARPREET Administration Heparin Sodium (Porcine) 5,000 unit 08/18/19 22:00 08/25/19 13:41 Heparin - SQ 5,000 unit TID HARPREET Administration Insulin Aspart 1 vial 08/18/19 16:30 08/25/19 11:40 Novolog Vial Sliding Scale - SQ 2 units TIDAC HARPREET Administration Protocol Levetiracetam 500 mg 08/17/19 22:00 08/25/19 10:20 Keppra - PO 500 mg BID HARPREET Administration Metformin HCl 1,000 mg 08/23/19 14:30 08/25/19 06:44 Glucophage Xr - PO 1,000 mg DAILY@0700 HARPREET Administration Pantoprazole Sodium 40 mg 08/18/19 10:00 08/25/19 10:20 Protonix - PO 40 mg DAILY HARPREET Administration ASSESSMENT/PLAN: 74M w/ pmh of Right temporal SDH, dyslipidemia, lung ca(s/p RT [id number]) presents to [facility] with complaint of SOB with productive cough of white sputum. Briefly hypoxic to ~87% while getting ED nebulizer tx. Admitted for COPD excerbation. Pulm consulted which recommended obtaining OSH Lung Ca records, outpatient PFTs, Azithromycin only. OSH from [facility] reviewed. Patient had suspcious lung mass on imaging after fall. BAL and bronchoscopic bx were negative. Mass grew in size and patient was recommended wedge resection which he refused. Underwent RT. Experienced fall in Mar 2019, transferred from [facility] to [facility] for two new frontal and temporal lobe lesions suggestive of lung Ca mets to brain. While hospitalized in [facility], received azithromycin x3d. Labwork showed new- onset diabetes w/ HbA1c 7.9. Metformin to be started as outpatient. Pt was flu positive, started Tamiflu. Weaned solumedrol to dexamethasone(home dose 4mg BID) . RT evaluation determined that pt needed home O2, 3L. Now awaiting STR vs SNF placement # acute COPD excerbation > CXR(08/17/19): atelectasis of RUL > CXR(08/18/19): unchanged - ED: --s/p duoneb x3, solumedrol 125mg -- hypoxia to 87%(undocumented), pulse ox 91% -- Ceftriaxone + Azithromycin x1 - Abx: Azithromycin 250 x3d - Solumedrol 40mg q8H --> dexamethasone 6mg BID --> dexamethasone 4mg BID - duoneb q6h scheduled, ventolin q4h PRN # influenza infection > infuenza B positive - Oseltamivir[TAMIFLU] --day 5, for 5d total --COMPLETED # new onset T2DM --likely 2/2 to chronic steroid usage > HbA1c 7.9 - on ISS - will need home metformin, glucometer, fingerstick teaching - during admission, started Metformin XL 1000 QD # hypoxia > ED: pulse ox 91% on RA > VB.44/40.6/57.9/29.1/88.6 - supplemental O2, titrate O2 % >91% - pre- and post- prior to discharge > RT: 87% on RA, 93% on 3L # abnormal EKG > EKG: sinus w/ premature atrial complexes, QTc 457 > troponin 0.03 > BNP 1028 - cw monitoring # LLE weakness --likely chronic; unlikely CVA - PT evaluation: 75ft, rec STR - continue monitoring # chronic steroid usage indicated for brain lesions --pt appears Cushingoid - Solumedrol 40mg q8H --> dexamethasone 6mg BID --> dexamethasone 4mg BID - med rec: dexamethasone 4mg BID(Dr Dwyer) FEN - diabetic diet PPX - SCDs - [facility] DISPO - needs home O2 - STR vs SNF vs home-VNS - PT: 50ft w/ unsteady gait Visit type - Emergency Visit Emergency Visit: No - New Patient This patient is new to me today: No - Critical Care Critical Care patient: No ATTENDING PHYSICIAN STATEMENT I saw and evaluated the patient. I reviewed the resident's note and discussed the case with the resident. I agree with the resident's findings and plan as documented. SUBJECTIVE: OBJECTIVE: ASSESSMENT AND PLAN:
[2019-08-25] MEDS ORDERED: PT OWN MED DRAWER 7, Y5N ONE (21:15)
[2019-08-25] MEDS: ATORVASTATIN CA 20 MG TABLET (FP) PO SCH (22:31)
[2019-08-26] MEDS: HEPARIN NA (PORCINE) 5,000 UNITS/ML 1ML VIAL SQ SCH ×2 (06:03→13:36)
[2019-08-26] MEDS: INSULIN SLIDING SCALE (NOVOLOG) 1 VIAL SQ SCH ×2 (06:03→11:31)
[2019-08-26] MEDS: ALBUTEROL SO4 2.5/IPRATROPIUM 0.5 INH SOL 3 ML VIAL.NEB. NEB SCH ×2 (08:49→16:06)
[2019-08-26] MEDS: CARVEDILOL 3.125 MG TABLET (FP) PO SCH (10:04)
[2019-08-26] MEDS: PANTOPRAZOLE 40 MG TABLET (FP) PO SCH (10:04)
[2019-08-26] MEDS: levETIRAcetam 500 MG TABLET (FP) PO SCH (10:04)
[2019-08-26] MEDS: DEXAMETHASONE 4 MG TABLET (FP) PO SCH (10:04)
--- NOTE | 2019-08-26 10:45 | PN ---
Progress Note (short form) - Note Progress Note: PULMONARY Denies shortness of breath. No cough and wheezing. No fevers. Vital Signs Period Temp Pulse Resp BP Sys/Hummel Pulse Ox Last 24 Hr 98 F-98.2 F 77-92 20-20 116-122/65-83 93-93 Gen: NAD at rest Heart: RRR Lung: scattered wheezes Abd: soft, nontender Ext: no edema CBC, BMP 08/20/19 07:15 08/20/19 07:15 Active Medications Acetaminophen (Tylenol -) 650 mg PO Q6H PRN PRN Reason: PAIN LEVEL 6-10 Last Admin: 08/25/19 13:48 Dose: 650 mg Albuterol Sulfate (Ventolin 0.083% Nebulizer Soln -) 1 amp NEB Q4H PRN PRN Reason: SHORT OF BREATH/WHEEZING Albuterol/Ipratropium (Duoneb -) 1 amp NEB RTID [facility] Last Admin: 08/26/19 08:49 Dose: 1 amp Atorvastatin Calcium (Lipitor -) 20 mg PO HS [facility] Last Admin: 08/25/19 22:31 Dose: 20 mg Carvedilol (Coreg -) 3.125 mg PO BID [facility] Last Admin: 08/26/19 10:04 Dose: 3.125 mg Dexamethasone (Decadron -) 4 mg PO BID [facility] Last Admin: 08/26/19 10:04 Dose: 4 mg Heparin Sodium (Porcine) (Heparin -) 5,000 unit SQ TID [facility] Last Admin: 08/26/19 06:03 Dose: 5,000 unit Insulin Aspart (Novolog Vial Sliding Scale -) 1 vial SQ TIDAC [facility]; Protocol Last Admin: 08/26/19 06:03 Dose: 4 units Levetiracetam (Keppra -) 500 mg PO BID [facility] Last Admin: 08/26/19 10:04 Dose: 500 mg Metformin HCl (Glucophage Xr -) 1,000 mg PO DAILY@0700 [facility] Last Admin: 08/26/19 06:03 Dose: 1,000 mg Pantoprazole Sodium (Protonix -) 40 mg PO DAILY [facility] Last Admin: 08/26/19 10:04 Dose: 40 mg A/P Influenza B Acute COPD Exacerbation h/o Lung Ca with brain mets s/p RT h/o Subdural Hematoma Hyperlipidemia - completed tamiflu - continue home dose decadron - inhaled bronchodilators - O2 to keep SpO2 >90% - DVT prophylaxis - d/c planning
[2019-08-26 14:29] VITALS: BP 123/78; PULSE 103; TEMP 98.7
--- NOTE | 2019-08-26 15:34 | PN ---
Teaching Attending Note Name of Resident: Karthikeyan Smith ATTENDING PHYSICIAN STATEMENT I saw and evaluated the patient. I reviewed the resident's note and discussed the case with the resident. I agree with the resident's findings and plan as documented. SUBJECTIVE: Patient is comfortable with no acute distress. OBJECTIVE: Vital Signs Temperature 98.7 F 08/26/19 10:00 Pulse Rate 103 H 08/26/19 10:00 Respiratory Rate 20 08/26/19 10:00 Blood Pressure 123/78 08/26/19 10:00 O2 Sat by Pulse Oximetry (%) 93 L 08/26/19 10:00 GENERAL: The patient is awake, alert, and fully oriented, in no acute distress. HEAD: Normal with no signs of trauma. EYES: PERRL, extraocular movements intact, sclera anicteric, conjunctiva clear. ENT: Ears normal, oropharynx clear without exudates, moist mucous membranes. NECK: Trachea midline, full range of motion, supple. LUNGS: Breath sounds equal, clear to auscultation bilaterally, no wheezes, no crackles, no accessory muscle use. HEART: Regular rate and rhythm, S1, S2 without murmur, rub or gallop. ABDOMEN: Soft, Nt,ND, normoactive bowel sounds, no guarding, no rebound, no hepatosplenomegaly, no masses. EXTREMITIES: 2+ pulses, warm, well-perfused, no edema. NEUROLOGICAL: Cranial nerves II through XII grossly intact. Normal speech, gait not observed. PSYCH: Normal mood, normal affect. SKIN: Warm, dry, normal turgor, no rashes or lesions noted CBCD WBC 8.6 K/mm3 (4.0-10.0) 08/20/19 07:15 RBC 4.13 M/mm3 (4.00-5.60) 08/20/19 07:15 Hgb 13.1 GM/dL (11.7-16.9) 08/20/19 07:15 Hct 39.4 % (35.4-49) 08/20/19 07:15 MCV 95.5 fl (80-96) 08/20/19 07:15 MCHC 33.2 g/dl (32.0-35.9) 08/20/19 07:15 RDW 14.7 % (11.9-15.9) 08/20/19 07:15 Plt Count 124 K/MM3 (134-434) L 08/20/19 07:15 MPV 8.4 fl (7.5-11.1) 08/20/19 07:15 CMP Sodium 142 mmol/L (136-145) 08/20/19 07:15 Potassium 4.0 mmol/L (3.5-5.1) 08/20/19 07:15 Chloride 108 mmol/L (98-107) H 08/20/19 07:15 Carbon Dioxide 28 mmol/L (21-32) 08/20/19 07:15 Anion Gap 6 MMOL/L (8-16) L 08/20/19 07:15 BUN 22.7 mg/dL (7-18) H 08/20/19 07:15 Creatinine 0.6 mg/dL (0.55-1.3) 08/20/19 07:15 Random Glucose 154 mg/dL (74-106) H 08/20/19 07:15 Calcium 8.6 mg/dL (8.5-10.1) 08/20/19 07:15 Total Bilirubin 0.8 mg/dL (0.2-1) 08/17/19 14:52 AST 32 U/L (15-37) 08/17/19 14:52 ALT 45 U/L (13-61) 08/17/19 14:52 Alkaline Phosphatase 101 U/L (45-117) 08/17/19 14:52 Total Protein 5.9 g/dl (6.4-8.2) L 08/17/19 14:52 Albumin 2.7 g/dl (3.4-5.0) L 08/17/19 14:52 CARDIAC ENZYMES Troponin I 0.03 ng/ml (0.00-0.05) 08/17/19 14:52 Home Medications Medication Instructions Recorded Atorvastatin Ca [Lipitor] 20 mg PO HS 08/17/19 Carvedilol [Coreg -] 3.125 mg PO BID 08/17/19 Omeprazole 40 mg PO DAILY 08/17/19 levETIRAcetam [Keppra -] 500 mg PO BID 08/17/19 Albuterol Sulfate [Proair Hfa] 8.5 gm IH Q4H PRN 08/19/19 Miscellaneous Medical Supply 1 each AD ASDIR #1 kit 08/19/19 [Glucometer Device] Miscellaneous Medical Supply 1 each AD ASDIR #1 box 08/19/19 [Glucometer Test Strips #100] Albuterol 2.5/Ipratropium 0.5 1 amp NEB RQID PRN amp 08/20/19 [Duoneb -] Budesonide/Formeterol Fumarate 1 inh PO DAILY #1 cannister 08/20/19 [SYMBICORT 160/4.5mcg -] Lancets/Blood Glucose Strips [Fora 1 each MC TID #1 combo..pkg 08/20/19 [id number] Strp-Lnct] Dexamethasone [Decadron -] 4 mg PO BID tablet 08/21/19 metFORMIN XR [Glucophage Xr -] 1,000 mg PO DAILY@0700 tab.sr.24h 08/23/19 Assessment and plan: Patient is a 74yom with Pmhx of R lung cancer, s/p radiation,brain Mets, R SDH , to lung field, HLP, who presented with SOB . he was diagnosed with COPD exacerbation # Acute COPD exacerbation, Influenza A. continue Home dose of Decadron, cont Nebs., on 3 L of O2 at rest and ambulation. - finished a course of tamiflu in the hospital #H/o of R lung cancer ( not proven by Bx ) with brain mets, s/p radiation. f/u with his Rad onc and onc as out pt - further taper of his decadron per his treating team , cont Keppra for px for sz. # H/o Subdural hematoma. # New onset DM. A1c 7.9, on metformin continue, foot and eye exam yearly, cont SSI patient is being dc'd to rehab today.
--- NOTE | 2019-08-31 18:18 | DS ---
Physical Exam: SUBJECTIVE: Patient seen and examined OBJECTIVE: PHYSICAL EXAM GENERAL: Awake, alert, and fully oriented. NAD HEAD: Normal with no signs of trauma. EYES: Extraocular movements intact, sclera anicteric, conjunctiva clear. No lid lag. Mild periorbital edema EARS, NOSE, THROAT: Ears normal, nares patent, oropharynx clear without exudates. Moist mucous membranes. NECK: Normal range of motion, supple without lymphadenopathy, JVD, or masses. LUNGS: mild crackles to bases, bilaterally. No wheezes. No accessory muscle use. On RA 2L. Occasional expiratory breaths through pursed lips HEART: Regular rate and rhythm, normal S1 and S2 without murmur, rub or gallop. ABDOMEN: Soft, nontender, not distended, no guarding, no rebound, no masses. Protuberant abdomen. MUSCULOSKELETAL: Normal range of motion at all joints. No bony deformities or tenderness. Thin BUE and BLE UPPER EXTREMITIES: 2+ pulses, warm, well-perfused. No cyanosis. No clubbing. No peripheral edema. LOWER EXTREMITIES: 2+ pulses, warm, well-perfused. No calf tenderness. No peripheral edema. SKIN: Warm, dry, normal turgor. Multiple Nevi of the back. Vikram appearing skin LABS HOSPITAL COURSE: Date of Admission:08/17/19 Date of Discharge: 08/31/19 74M w/ pmh of Right temporal SDH, dyslipidemia, lung ca(s/p RT [id number]) presents to [facility] with complaint of SOB with productive cough of white sputum. Briefly hypoxic to ~87% while getting ED nebulizer tx. Admitted for COPD excerbation. Pulm consulted which recommended obtaining OSH Lung Ca records, outpatient PFTs, Azithromycin only. OSH from [facility] reviewed. Patient had suspcious lung mass on imaging after fall. BAL and bronchoscopic bx were negative. Mass grew in size and patient was recommended wedge resection which he refused. Underwent RT. Experienced fall in Mar 2019, transferred from [facility] to [facility] for two new frontal and temporal lobe lesions suggestive of lung Ca mets to brain. While hospitalized in [facility], received azithromycin x3d. Labwork showed new- onset diabetes w/ HbA1c 7.9. Metformin to be started as outpatient. Pt was flu positive, started Tamiflu. RT evaluation determined that pt needed home O2, 3L. Stable for discharge to SNF vs STR Patient left hospital on 08/26/2019, due to awaiting disposition placement at [facility]. [facility] has a policy of pt being on (flu)isolation for 8d prior to acceptance. Pt completed Tamiflu x5d Minutes to complete discharge: 31 Discharge Summary Problems reviewed: Yes Reason For Visit: ACUTE EXACERBATION OF COPD; HYPOXIA Condition: Improved - Instructions Diet, Activity, Other Instructions: You were evaluated in the hospital for shortness of breath and trouble breathing. Testing showed that you positive for the Influenza Virus. You were given inhaled medications to help you breathe better. You also received intravenous steroids, intravenous antibiotics, and a antiviral medication. You completed the full course of Tamiflu during this hospitalization. Your symptoms improved. A respiratory therapist determined that you would benefit from home oxygen therapy Medications: - NEW Medications: -- Albuterol/Ipratropium[DUONEG] 1 ampule, up to 4 times daily for shortness of breath -- Metformin XL 1000mg, once daily -- oxygen therapy, 3L via nasal cannula at rest and with ambulation and during night time - you will be prescribed a Glucometer to check your blood sugar everyday - resume other home medications Additional instructions: - check your blood sugars, 3 times a day, prior to meals. Please record the date , time, and blood sugar levels in a journal - diet: adhere to a low sodium, low sugar, low cholesterol, high fiber diet Please follow up within 1 week with the physicians below: - PCP(Dr Dwyer): to discuss your recent hospitalization. Please bring your blood sugar journal - Rope Making Machine Operator (Dr Hood): to discuss getting Pulmonary Function Testing - Oncologist/rad ONC: to discuss your cancer and your steroid taper Please seek immediate medical attention if you experience: - severe shortness of breath, dizziness, confusion. - chest pain, palpitations No smoking with your oxygen. you need regular yearly eye exam and foot exam. Referrals: Malcolm Hood MD [Staff Physician] - 1 Week Immanuel Dwyer MD [Primary Care Provider] - Disposition: CARE HOME FACILITY - Home Medications Comprehensive Discharge Medication List: Ambulatory Orders Atorvastatin Ca [Lipitor] 20 mg PO HS 08/17/19 Carvedilol [Coreg -] 3.125 mg PO BID 08/17/19 Omeprazole 40 mg PO DAILY 08/17/19 levETIRAcetam [Keppra -] 500 mg PO BID 08/17/19 Albuterol Sulfate [Proair Hfa] 8.5 gm IH Q4H PRN 08/19/19 Miscellaneous Medical Supply [Glucometer Device] 1 each AD ASDIR #1 kit Miscellaneous Medical Supply [Glucometer Test Strips #100] 1 each AD ASDIR #1 box 08/19/19 Albuterol 2.5/Ipratropium 0.5 [Duoneb -] 1 amp NEB RQID PRN amp 08/20/19 Budesonide/Formeterol Fumarate [SYMBICORT 160/4.5mcg -] 1 inh PO DAILY #1 cannister 08/20/19 Lancets/Blood Glucose Strips [Fora [id number] Strp-Lnct] 1 each TID #1 combo..pkg 08/20/19 Dexamethasone [Decadron -] 4 mg PO BID tablet 08/21/19 metFORMIN XR [Glucophage Xr -] 1,000 mg PO DAILY@0700 tab.sr.24h 08/23/19 This patient is new to me today: No Emergency Visit: No Critical Care patient: No - Discharge Referral Referred to [facility] No ATTENDING PHYSICIAN STATEMENT I saw and evaluated the patient. I reviewed the resident's note and discussed the case with the resident. I agree with the resident's findings and plan as documented. SUBJECTIVE: OBJECTIVE: ASSESSMENT AND PLAN:
== END 2019-08-26 15:18 | DRG 191 ==
LOC: JER 13:47 → JERBED 16:31 → J6S 18:43
PROVIDERS: ADMIT Internal Medicine; ATTEND Internal Medicine
DX: J44.1 Chronic obstructive pulmonary disease with (acute) exacerbation (principal); C34.91 Malignant neoplasm of unspecified part of right bronchus or lung; J98.11 Atelectasis; C79.31 Secondary malignant neoplasm of brain; J10.1 Influenza due to other identified influenza virus with other respiratory manifestations; R00.0 Tachycardia, unspecified; E78.5 Hyperlipidemia, unspecified; Z87.891 Personal history of nicotine dependence; R94.31 Abnormal electrocardiogram [ECG] [EKG]; E11.9 Type 2 diabetes mellitus without complications
CPT/HCPCS: 36415; 71045-TC-FY; 71046-TC-FY; 80048; 80053; 81003; 82803; 82962; 83036; 83735; 83880; 84100; 84436; 84443; 84484; 85025; 85027; 87804; 87899; 93005; 93010; 94640; 94761; 97116-GP; 97162-GP; 99285-25; J1644